=== PATIENT | female | born 1935 | race Caucasian/White ===

== ENCOUNTER 2017-05-25 12:51 | Emergency (ER) | payer MEDICARE, OTHER ==
--- NOTE | 2017-05-25 14:14 | RAD ---
3 VIEWS OF RIGHT FOOT: Date: 05/25/17 INDICATION: Right foot swelling. COMPARISON: None. FINDINGS: There is moderate metatarsus primum varus and hallux valgus deformity. There is moderate great toe MT P osteoarthrosis. There is diffuse osteopenia. There is scattered IP osteoarthrosis of the foot. Ther e is suspicion for an obliquely oriented fracture involving the lateral proximal phalangeal head of t he third digit. Recommend correlation. This is seen on only one projection. No additional fracture is grossly evident. Lisfranc alignment is preserved. There is heterotopic ossification adjacent to the medial malleolus likely reflecting sequelae of prior injury. There is a moderate size bunion. IMPRESSION: Findings suspicious for a nondisplaced obliquely oriented fracture involving the third digit proximal phalangeal head. POS: GUNJAN
== END 2017-05-25 16:19 | disposition home or self-care (01) ==
LOC: ERS 12:51
DX: S92.524A Nondisplaced fracture of middle phalanx of right lesser toe(s), initial encounter for closed fracture (principal); E78.5 Hyperlipidemia, unspecified; F03.90 Unspecified dementia, unspecified severity, without behavioral disturbance, psychotic disturbance, mood disturbance, and anxiety; F32.9 Major depressive disorder, single episode, unspecified; F41.9 Anxiety disorder, unspecified; I10 Essential (primary) hypertension; X58.XXXA Exposure to other specified factors, initial encounter

== ENCOUNTER 2017-09-01 10:26 | Emergency (ER) | payer MEDICARE, OTHER ==
--- NOTE | 2017-09-01 11:13 | RAD ---
RIGHT WRIST 3 VIEWS: HISTORY: Pain. COMPARISON: None. FINDINGS: No acute displaced fracture or malalignment. Moderate degenerative disk disease throughout the inter phalangeal joint as well as extensive degenerative disease of the thumb carpometacarpal joint. IMPRESSION: No acute fracture or malalignment. POS: [facility]
[2017-09-01] MEDS ORDERED: Bacitracin Zinc 1 Packet ONE (11:16)
== END 2017-09-01 11:33 | disposition home or self-care (01) ==
LOC: ERS 10:26
DX: S61.511A Laceration without foreign body of right wrist, initial encounter (principal); I10 Essential (primary) hypertension; E78.5 Hyperlipidemia, unspecified; F32.9 Major depressive disorder, single episode, unspecified; F41.9 Anxiety disorder, unspecified; Z79.899 Other long term (current) drug therapy; X58.XXXA Exposure to other specified factors, initial encounter

== ENCOUNTER 2018-05-22 12:53 | Emergency (ER) | payer MEDICARE, OTHER ==
[2018-05-22] MEDS ORDERED: Lidocaine 1% w/Epinephrine 1:100K 20 ML VIAL ONE (13:45)
[2018-05-22] MEDS ORDERED: Adacel (T-DAP) 0.5 ML SYRINGE ONE (15:20)
--- NOTE | 2018-05-22 15:24 | CT ---
CT BRAIN WITHOUT CONTRAST: Date: 05/22/18 HISTORY: Fall. COMPARISON: CT brain dated 03/11/15. FINDINGS: Mild atrophy. Moderate microvascular ischemic changes, chronic. No acute hemorrhage or infarct. No mi dline shift or mass effect. Paranasal sinuses and mastoids are clear. IMPRESSION: 1. Chronic changes. No acute intracranial abnormality. 2. Right forehead and supraorbital soft tissue contusion, laceration, and possible degloving injury. Underlying calvarium is intact. POS: GUNJAN
--- NOTE | 2018-05-22 15:28 | CT ---
FACIAL BONES CT WITHOUT CONTRAST: Date: 05/22/18 HISTORY: Laceration to the right forehead. Fall. COMPARISON: None. FINDINGS: There is a right supraorbital scalp laceration and hematoma. Visualized calvarium is intact. Symmetri c aeration of the sinuses and mastoid air cells. Bilateral zygomatic arches are intact. Bilateral pterygoid plates are intact. Bilaterally, ostiomeatal complexes are patent. The osseous margins of the orbits and sinuses are main tained. Mild mucosal disease of the right maxillary sinus. Remaining sinuses and mastoid air cells are approp riately aerated. Visualized upper cervical spine is intact. No definite cervical spine fracture. Maxilla and mandible do not demonstrate a post-traumatic change. No masses in the oral cavity. Midline fatty raphe of the tongue is preserved. There is mild induration of the soft tissues overlying the right maxillary and zygomatic arch. IMPRESSION: 1. Right scalp and facial post-traumatic changes. 2. No evidence of fracture. POS: [facility]
--- NOTE | 2018-05-22 15:29 | CT ---
CT CERVICAL SPINE WITHOUT CONTRAST: HISTORY: Fall. COMPARISON: None. FINDINGS: There is some ossification of the transverse ligament of the dens. No fracture of the occipital cond yles. The odontoid process is intact. Moderate facet arthropathy throughout the cervical spine. The lung apices are clear. No adenopathy. There is a calcified mass in the right lobe of the thyroid. Multilevel degenerative disk space height loss, worse from C4 to C7. IMPRESSION: 1. No acute displaced fracture or malalignment. 2. Mass in the right lobe of the thyroid with internal calcifications. Non-emergent follow-up ultra sound is recommended. POS: GUNJAN
[2018-05-22] MEDS ORDERED: Bacitracin Zinc 1 Packet ONE (16:07)
== END 2018-05-22 16:34 | disposition home or self-care (01) ==
LOC: ERS 12:53
DX: S01.81XA Laceration without foreign body of other part of head, initial encounter (principal); S61.412A Laceration without foreign body of left hand, initial encounter; E78.5 Hyperlipidemia, unspecified; F03.90 Unspecified dementia, unspecified severity, without behavioral disturbance, psychotic disturbance, mood disturbance, and anxiety; F32.9 Major depressive disorder, single episode, unspecified; E04.1 Nontoxic single thyroid nodule; I10 Essential (primary) hypertension; W01.198A Fall on same level from slipping, tripping and stumbling with subsequent striking against other object, initial encounter
CPT/HCPCS: 12015; 70450; 70486; 72125; 90471; 90715; 93005; J2001

== ENCOUNTER 2018-06-04 19:19 | Emergency (ER) | payer MEDICARE, OTHER | END 2018-06-04 21:11 | disposition home or self-care (01) | LOC: ERS 19:19 | DX: S01.81XD Laceration without foreign body of other part of head, subsequent encounter (principal); F41.9 Anxiety disorder, unspecified; F32.9 Major depressive disorder, single episode, unspecified; E78.5 Hyperlipidemia, unspecified; I10 Essential (primary) hypertension ==

== ENCOUNTER 2018-11-07 19:59 | Emergency (ER) | payer MEDICARE, OTHER ==
--- NOTE | 2018-11-07 21:10 | CT ---
Head CT without contrast 11/07/2018: COMPARISON: 05/22/2018 HISTORY: Altered mental status, confusion, dementia TECHNIQUE: Axial CT imaging at 5 mm intervals from vertex through skull base without contrast FINDINGS: The imaged paranasal sinuses and mastoid air cells are well aerated. No displaced calvarial fracture. Stable cerebral volume loss (most significant in the anterior frontal lobes) with prominence of the CSF containing spaces. Stable periventricular hypodensity suggesting small vessel d isease. No intracranial hemorrhage, midline shift, or mass effect. IMPRESSION: Stable head CT as detailed above.
[2018-11-07 21:14] LABS: Bilirubin Negative (Negative); Blood, Urine Large (Negative); Clarity Cloudy (Clear); Glucose, Urine (Dipstick) Negative (Negative); Leukocyte Large (Negative); Nitrite Negative (Negative); Protein, Urine (Dipstick) Trace mg/dL (Neg-Trace); Urobilinogen 0.2 mg/dL (0.2-1.0); pH, Urine 5.5 (5.0-9.0)
[2018-11-07 21:16] LABS: Bacteria/HPF 2+ HPF (None Seen); Squamous Epithelial 0-3 HPF (0-3); Yeast-All Forms 1+ HPF (None Seen)
[2018-11-07 21:17] LABS: Other Casts/LPF 0-3 COARSE GRAN LPF (0-3 Hyaline); Renal Epithelial 0-3 HPF (0-3)
[2018-11-07] MEDS ORDERED: cefTRIAXone\\ROCEPHIN 1 GM VIAL ONE (21:38)
[2018-11-07] MEDS ORDERED: Sodium Chloride 0.9% 100 ML ONE (21:39)
[2018-11-07 22:16] LABS: #Basophils 0.1 thou/uL (0.0-0.2); #Eosinphils 0.2 thou/uL (0.0-0.7); #Monocytes 0.6 thou/uL (0.11-0.59); #Neutrophils 3.3 thou/uL (1.40-6.50); %Eosinophils 4.7 % (0.0-10.0); %Lymphocytes 19.4 % (21.0-51.0); %Monocytes 10.6 % (0.0-10.0); %Neutrophils 63.4 % (42.0-75.0); Hemoglobin 13.3 g/dL (12.0-16.0); Mean Corpuscular HGB CONC 34.1 g/dL (32.0-36.0); Mean Corpuscular Hemoglobin 31.4 pg (27.0-31.0); Mean Corpuscular Volume 92.2 fL (78.0-98.0); Platelet Count 169 thou/uL (130-400); Red Blood Cell (RBC) Count 4.24 mill/uL (4.20-5.40); White Blood Cell (WBC) Count 5.2 thou/uL (4.8-10.8)
[2018-11-07 22:31] LABS: ALT (SGPT) 13 U/L (8-55); AST (SGOT) 17 U/L (5-34); Albumin 3.3 g/dL (3.4-4.8); Alkaline Phosphatase 93 U/L (40-150); Anion Gap 9 mmol/L (10-20); BUN (Urea Nitrogen) 19 mg/dL (9.8-20.1); Bilirubin, Total 0.3 mg/dL (0.2-1.2); Calc. Creatinine Clearance 0 mL/min (70-130); Calcium 10.1 mg/dL (7.8-10.44); Carbon Dioxide 28 mmol/L (23-31); Chloride 106 mmol/L (98-107); Estimated GFR-MDRD 63; Globulin 3.7 g/dL (2.4-3.5); Glucose 94 mg/dL (83-110); Lipase 32 U/L (8-78); Magnesium 2.1 mg/dL (1.6-2.6); Potassium 4.6 mmol/L (3.5-5.1); Sodium 138 mmol/L (136-145)
== END 2018-11-07 23:45 | disposition home or self-care (01) ==
LOC: SCSER 19:59
DX: N39.0 Urinary tract infection, site not specified (principal); K59.00 Constipation, unspecified; E78.5 Hyperlipidemia, unspecified; I10 Essential (primary) hypertension; F03.90 Unspecified dementia, unspecified severity, without behavioral disturbance, psychotic disturbance, mood disturbance, and anxiety; F41.9 Anxiety disorder, unspecified; F32.9 Major depressive disorder, single episode, unspecified
CPT/HCPCS: 51701; 70450; 80053; 81003; 81015; 83605; 83690; 83735; 84484; 85025; 87086; 93005; 96365; J0696; J3490

== ENCOUNTER 2019-01-25 04:49 | Inpatient (IN) | payer MEDICARE, OTHER ==
[2019-01-25 06:26] LABS: #Lymphocytes 0.8 thou/uL (1.20-3.40); #Monocytes 0.7 thou/uL (0.11-0.59); #Neutrophils 12.3 thou/uL (1.40-6.50); %Basophils 0.1 % (0.0-1.0); %Eosinophils 0.1 % (0.0-10.0); %Lymphocytes 5.6 % (21.0-51.0); %Monocytes 4.9 % (0.0-10.0); %Neutrophils 89.3 % (42.0-75.0); Hemoglobin 13.6 g/dL (12.0-16.0); Mean Corpuscular HGB CONC 31.4 g/dL (32.0-36.0); Mean Corpuscular Hemoglobin 29.7 pg (27.0-31.0); Mean Corpuscular Volume 94.8 fL (78.0-98.0); Mean Platelet Volume 6.9 fL (7.4-10.4); Platelet Count 328 thou/uL (130-400); RBC Distribution Width 12.9 % (11.5-14.5); Red Blood Cell (RBC) Count 4.57 mill/uL (4.20-5.40); White Blood Cell (WBC) Count 13.7 thou/uL (4.8-10.8)
[2019-01-25 06:48] LABS: ALT (SGPT) 12 U/L (8-55); AST (SGOT) 13 U/L (5-34); Albumin 3.3 g/dL (3.4-4.8); Alkaline Phosphatase 112 U/L (40-150); Anion Gap 10 mmol/L (10-20); BUN (Urea Nitrogen) 41 mg/dL (9.8-20.1); Bilirubin, Total 0.5 mg/dL (0.2-1.2); Calc. Creatinine Clearance 0 mL/min (70-130); Calcium 9.9 mg/dL (7.8-10.44); Carbon Dioxide 28 mmol/L (23-31); Chloride 111 mmol/L (98-107); Estimated GFR-MDRD 40; Glucose 158 mg/dL (83-110); Lipase 14 U/L (8-78); Potassium 4.1 mmol/L (3.5-5.1); Protein, Total 7.3 g/dL (6.0-8.3); Sodium 145 mmol/L (136-145)
[2019-01-25 07:45] LABS: Bacteria/HPF 3+ HPF (None Seen); Bilirubin Negative (Negative); Blood, Urine 2+ (Negative); Clarity Turbid (Clear); Glucose, Urine (Dipstick) Normal (Negative); Leukocyte 500 Leu/uL (Negative); Nitrite 1+ (Negative); Protein, Urine (Dipstick) 30 mg/dL (Neg-Trace); RBC/HPF 21-50 HPF (0-3); Squamous Epithelial 0-3 HPF (0-3); Urobilinogen Normal mg/dL (Less than 2); WBC/HPF Greater than 50 HPF (0-3)
[2019-01-25] MEDS ORDERED: cefTRIAXone\\ROCEPHIN 1 GM VIAL ONE (08:35)
[2019-01-25] MEDS ORDERED: Ondansetron PF 4 MG/2 ML Vial ONE (08:52)
--- NOTE | 2019-01-25 10:50 | HP ---
PRIMARY CARE PHYSICIAN: Dr. Hi Mejía. REASON FOR ADMISSION: Acute encephalopathy, urinary tract infection, and dehydration. HISTORY OF PRESENT ILLNESS: An 83-year-old female, who lives at [facility], who has underlying history of Alzheimer's dementia. The patient was sent from there because she was appeared altered. She was not eating or drinking, and she was having diarrhea and vomiting. She was appeared more lethargic, more weak. The patient is chronically confused, but she was appeared more than confused than her baseline. [facility] the patient is able to ambulate with walker with fall risk, but she is unsteady. She is able to eat with assistance, but for last 2 or 3 days, the patient was not able to do that as well and that is why the patient was sent to ER. In the emergency room, the patient was appeared dehydrated. She was only alert and oriented x1. She was not able to provide any history. I spoke with the patient's medical power of employment attorney on phone and history obtained from her. At this point, we are admitting this patient for encephalopathy, which is acute on chronic as well as urinary tract infection and dehydration, and the patient is not able to tolerate anything p.o. by mouth in the emergency room as well. REVIEW OF SYSTEMS: All review of system tried to review with the patient, but unable to review at this point because of altered mental status. PAST MEDICAL HISTORY: Hypothyroidism, hypertension, cholelithiasis, Alzheimer's dementia, and history of shingles in the right leg. PAST SURGICAL HISTORY: Laparoscopic cholecystectomy, umbilical hernia repair with mesh, knee surgery, and ORIF over the right femur. PAST PSYCHIATRIC HISTORY: Anxiety, depression, and Alzheimer's dementia. SOCIAL HISTORY: [facility]. No history of tobacco abuse. Occasionally wine. FAMILY HISTORY: No strong family history of premature coronary artery disease, stroke, or cancer as per report. The patient is not able to provide any detailed history. ALLERGIES: PENICILLIN. CURRENT HOME MEDICATIONS: 1. Namenda ER 14 mg daily. 2. Melatonin 3 mg at bedtime p.r.n. 3. Aricept 5 mg at bedtime. 4. Levothyroxine 50 mcg daily. 5. Lisinopril 10 mg daily. 6. Multivitamin daily. 7. Tramadol 50 mg b.i.d. p.r.n. 8. Aspirin 81 mg daily. 9. Tums with vitamin D one tablet daily. 10. Ferrous sulfate one tablet daily. 11. Protonix 40 mg daily. 12. MiraLAX 17 g daily. EMERGENCY ROOM COURSE: The patient has received IV fluid, Rocephin, and Zofran. PHYSICAL EXAMINATION: VITAL SIGNS: Currently, blood pressure 123/60, pulse 73, respiratory rate 16, temperature 98.8, and saturation 95% on room air. Weight 66.7 kg. GENERAL: The patient is currently confused, only oriented x1. No obvious acute distress. HEENT: Head; normocephalic and atraumatic. Eyes; pupils round and reactive to light. Extraocular muscle intact. ENT; dry mucous membranes. No oral lesion. No pharyngeal erythema. No exudate. NECK: Supple. No JVD. No thyromegaly. No carotid bruit. LUNGS: Clear to auscultation without any rhonchi or rales. CARDIAC: S1 and S2 appear regular without any murmur. ABDOMEN: Soft and bowel sounds present. Mild discomfort noted or suprapubic palpation. BACK: No CVA tenderness. EXTREMITIES: Upper extremities; passive movement of all joints are normal. Lower extremities; no edema. Good distal pulsation. SKIN: No skin rash. NEUROLOGIC: Grossly nonfocal examination. She is moving all 4 limbs, but detailed neurological examination not possible because of altered mental status. PSYCHIATRIC: Normal affect. HEMATOLOGIC: No lymphadenopathy. SIGNIFICANT LABORATORY DATA: CBC; WBC 13.7, hemoglobin 13.6, platelet 328 with left shift. BMP; sodium 145, potassium 4.1, chloride 111, carbon dioxide 28, anion gap 10, BUN 41, creatinine 1.27, glucose 158, calcium 9.9. Lactic acid 1.6. LFT; AST 13, ALT 12, alkaline phosphatase 112, albumin 3.3, and lipase 14. Urinalysis consistent with urinary tract infection. Stool for guaiac positive. ASSESSMENT AND PLAN: Impression: 1. Acute on chronic encephalopathy. 2. Dehydration. 3. Nausea and vomiting and poor p.o. tolerance. 4. Urinary tract infection. 5. Acute kidney injury with dehydration secondary to poor p.o. intake. 6. Advanced Alzheimer's dementia. 7. Hypothyroidism. 8. Gastroesophageal reflux disease. 9. Physical deconditioning. PLAN: Admission to medical floor. Code status discussed with the patient's medical power of employment attorney and the patient is DNR. Start Rocephin 1 g q.24 hours and Levaquin 500 mg IV daily. Continue IV fluid. Repeat labs tomorrow. Follow up on culture result. Monitor mental status. Start diet as tolerated. Start PT/OT. We are expecting the patient's stay in hospital more than 2 midnights. Code status discussed with the patient's medical power of employment attorney and the patient is DNR. GI prophylaxis, Pepcid 20 mg p.o. or IV b.i.d. Job ID: [id number]
[2019-01-25] MEDS ORDERED: Ondansetron ODT 4 MG TAB SL PRN (12:46)
[2019-01-25] MEDS ORDERED: Ondansetron PF 4 MG/2 ML Vial IVP PRN ×2 (12:46→12:59)
[2019-01-25] MEDS ORDERED: Acetaminophen 325 MG TAB PO PRN (12:59)
[2019-01-25] MEDS ORDERED: Calcium Carbonate 500 MG ChewTAB PO PRN (12:59)
[2019-01-25] MEDS ORDERED: hydrALAZINE 20 MG/ML VIAL SLOW IVP PRN (12:59)
[2019-01-25] MEDS ORDERED: Senokot S 8.6-50 MG TAB PO PRN (12:59)
[2019-01-25] MEDS ORDERED: Cepastat Lozenges 1 LOZ PO PRN (12:59)
[2019-01-25] MEDS ORDERED: Acetaminophen 650 MG Suppository PR PRN (12:59)
[2019-01-25] MEDS ORDERED: Bisacodyl 10 MG SUPP PR PRN ×2 (12:59)
[2019-01-25] MEDS ORDERED: Loratadine 10 MG TAB PO PRN (12:59)
[2019-01-25] MEDS ORDERED: Ondansetron ODT 4 MG TAB PO PRN (12:59)
[2019-01-25] MEDS ORDERED: Loperamide HCl 2 MG CAP PO PRN (12:59)
[2019-01-25] MEDS ORDERED: Artificial Tears 18 DROP/0.9 ML EA EYE PRN (12:59)
[2019-01-25] MEDS ORDERED: Diabetic Tussin 200 MG/10 ML UDCUP PO PRN (12:59)
[2019-01-25] MEDS ORDERED: Sodium Chloride 0.65% Nasal 44 ML BOT EA NARE PRN (12:59)
[2019-01-25 15:08] VITALS: BMI 24.9
[2019-01-25] MEDS: Sodium Chloride 0.9% 1,000 ML IV SCH (15:21)
[2019-01-25] MEDS ORDERED: cefTRIAXone\\ROCEPHIN 1 GM in Sodium Chloride 0.9% 100 ML IVPB SCH (21:00)
[2019-01-25] MEDS: Famotidine/PF 20 mg/2ml Vial SLOW IVP SCH (21:32)
[2019-01-25] MEDS: Famotidine 20 MG TAB PO SCH (21:34)
[2019-01-26] MEDS: Sodium Chloride 0.9% 1,000 ML IV SCH ×2 (00:38→03:55)
[2019-01-26 05:48] LABS: #Basophils 0.1 thou/uL (0.0-0.2); #Eosinphils 0.3 thou/uL (0.0-0.7); #Lymphocytes 1.1 thou/uL (1.20-3.40); #Monocytes 0.4 thou/uL (0.11-0.59); #Neutrophils 5.3 thou/uL (1.40-6.50); %Basophils 0.8 % (0.0-1.0); %Eosinophils 3.8 % (0.0-10.0); %Lymphocytes 14.9 % (21.0-51.0); %Monocytes 5.9 % (0.0-10.0); %Neutrophils 74.6 % (42.0-75.0); Hemoglobin 10.5 g/dL (12.0-16.0); Mean Corpuscular HGB CONC 32.9 g/dL (32.0-36.0); Mean Corpuscular Hemoglobin 31.3 pg (27.0-31.0); Mean Corpuscular Volume 95.2 fL (78.0-98.0); Mean Platelet Volume 6.8 fL (7.4-10.4); Platelet Count 234 thou/uL (130-400); RBC Distribution Width 12.6 % (11.5-14.5); Red Blood Cell (RBC) Count 3.35 mill/uL (4.20-5.40); White Blood Cell (WBC) Count 7.1 thou/uL (4.8-10.8)
[2019-01-26 06:11] LABS: ALT (SGPT) 9 U/L (8-55); AST (SGOT) 12 U/L (5-34); Albumin 2.7 g/dL (3.4-4.8); Alkaline Phosphatase 95 U/L (40-150); Anion Gap 8 mmol/L (10-20); BUN (Urea Nitrogen) 26 mg/dL (9.8-20.1); Bilirubin, Total 0.4 mg/dL (0.2-1.2); Calc. Creatinine Clearance 48 mL/min (70-130); Calcium 8.7 mg/dL (7.8-10.44); Carbon Dioxide 24 mmol/L (23-31); Chloride 116 mmol/L (98-107); Estimated GFR-MDRD 60; Globulin 3.2 g/dL (2.4-3.5); Glucose 101 mg/dL (83-110); Potassium 3.7 mmol/L (3.5-5.1); Protein, Total 5.9 g/dL (6.0-8.3); Sodium 144 mmol/L (136-145)
[2019-01-26] MEDS ORDERED: Prevnar 13-Val Conj/PF 0.5 ML SYRINGE IM ONE (09:00)
[2019-01-26] MEDS: cefTRIAXone\\ROCEPHIN 1 GM in Sodium Chloride 0.9% 100 ML IVPB SCH (10:33)
[2019-01-26] MEDS: Famotidine 20 MG TAB PO SCH (10:34)
[2019-01-26] MEDS: Saccharomyces boulardii 250 MG CAP PO SCH (10:34)
[2019-01-26] MEDS: Enoxaparin Sodium 40 MG/0.4 ML SYRINGE SC SCH (10:34)
[2019-01-26] MEDS: Famotidine/PF 20 mg/2ml Vial SLOW IVP SCH (10:35)
--- NOTE | 2019-01-26 13:07 | PDOC.HOSPP ---
- Subjective Subjective: Patient seen and examined. No new complaints. No overnight events - Objective Vital Signs & Weight: Vital Signs (12 hours) Temp Pulse Resp BP Pulse Ox 01/26/19 08:00 97.9 F 56 L 20 150/87 H 96 01/26/19 04:00 97.6 F 58 L 15 169/82 H 94 L Weight Weight 145 lb 5 oz I&O: 01/25/19 01/26/19 01/27/19 06:59 06:59 06:59 Intake Total 880 Balance 880 Result Diagrams: 01/26/19 05:21 01/26/19 05:21 ROS - Review of Systems ROS unobtainable: due to mental status All systems: All other ROS were reviewed and found negative. - Medication Medications: Active Medications Generic Name Dose Route Start Last Admin Trade Name Freq PRN Reason Stop Dose Admin Enoxaparin Sodium 40 mg 01/26/19 09:00 01/26/19 10:34 Lovenox SC 40 mg 0900 ILA Administration Famotidine 20 mg 01/25/19 21:00 01/26/19 10:35 Pepcid SLOW IVP Not Given Q12HR ILA Famotidine 20 mg 01/25/19 21:00 01/26/19 10:34 Pepcid PO 20 mg BID ILA Administration Ceftriaxone Sodium 1 gm/ 100 mls @ 200 mls/hr 01/26/19 09:00 01/26/19 10:33 Sodium Chloride IVPB 100 mls 0900 ILA Administration Levofloxacin 500 mg/ Device 100 mls @ 100 mls/hr 01/25/19 14:00 01/25/19 15: 21 IVPB 100 mls Q24HR ILA Administration Saccharomyces Boulardii 250 mg 01/26/19 09:00 01/26/19 10:34 Florastor PO 250 mg DAILY ILA Administration - Exam NAD, awake alert Eye: PERRL, anicteric sclera ENT: normocephalic atraumatic, no oropharyngeal lesions Neck: supple, symmetric, no JVD Heart: RRR, no murmur, no gallops, no rubs Respiratory: CTAB, no wheezes, no rales, no ronchi Gastrointestinal: soft, non-tender, non-distended, normal bowel sounds Extremities: no cyanosis, no clubbing, no edema Skin: normal turgor, no lesions, no rashes Neurological: CN's grossly intact, normal sensation to touch, no focal deficits Musculoskeletal: normal tone, normal strength Psychiatric: normal affect, normal behavior Hosp A/P (1) RAZIA (acute kidney injury) Code(s): N17.9 - ACUTE KIDNEY FAILURE, UNSPECIFIED Status: Acute (2) Dehydration Code(s): E86.0 - DEHYDRATION Status: Acute (3) Encephalopathy acute Code(s): G93.40 - ENCEPHALOPATHY, UNSPECIFIED Status: Acute (4) UTI (urinary tract infection) Status: Acute (5) Alzheimer's dementia Code(s): G30.9 - ALZHEIMER'S DISEASE, UNSPECIFIED; F02.80 - DEMENTIA IN OTH DISEASES CLASSD ELSWHR W/O BEHAVRL DISTURB Status: Chronic (6) Anemia, normocytic normochromic Code(s): D64.9 - ANEMIA, UNSPECIFIED Status: Chronic (7) Hypothyroidism Code(s): E03.9 - HYPOTHYROIDISM, UNSPECIFIED Status: Chronic - Plan old records reviewed/req, continue antibiotics, PT/OT, DVT proph w/lovenox, dc IVF DC IVF follow culture continue rocephin , levaquin medication reviewed as below symptomatic treatment
[2019-01-27] MEDS: Famotidine 20 MG TAB PO SCH (07:44)
[2019-01-27] MEDS: Enoxaparin Sodium 40 MG/0.4 ML SYRINGE SC SCH (07:44)
[2019-01-27] MEDS: Saccharomyces boulardii 250 MG CAP PO SCH (07:44)
[2019-01-27] MEDS: Famotidine/PF 20 mg/2ml Vial SLOW IVP SCH (07:45)
--- NOTE | 2019-01-27 11:49 | PDOC.HOSPP ---
- Subjective Subjective: Patient seen and examined. No new complaints. No overnight events - Objective Vital Signs & Weight: Vital Signs (12 hours) Temp Pulse Resp BP Pulse Ox 01/27/19 11:41 97.8 F 56 L 14 166/85 H 95 01/27/19 07:28 97.8 F 49 L 14 135/54 L 91 L Weight Admit Weight 145 lb 4.96 oz Weight 145 lb 4.96 oz I&O: 01/26/19 01/27/19 01/28/19 06:59 06:59 06:59 Intake Total 880 240 Balance 880 240 Result Diagrams: 01/26/19 05:21 01/26/19 05:21 ROS - Review of Systems ROS unobtainable: due to mental status All systems: All other ROS were reviewed and found negative. - Medication Medications: Active Medications Generic Name Dose Route Start Last Admin Trade Name Freq PRN Reason Stop Dose Admin Enoxaparin Sodium 40 mg 01/26/19 09:00 01/27/19 07:44 Lovenox SC 40 mg 0900 ILA Administration Famotidine 20 mg 01/27/19 09:00 01/27/19 07:45 Pepcid SLOW IVP Not Given DAILY ILA Famotidine 20 mg 01/27/19 09:00 01/27/19 07:44 Pepcid PO 20 mg DAILY ILA Administration Ceftriaxone Sodium 1 gm/ 100 mls @ 200 mls/hr 01/26/19 09:00 01/26/19 10:33 Sodium Chloride IVPB 100 mls 0900 ILA Administration Saccharomyces Boulardii 250 mg 01/26/19 09:00 01/27/19 07:44 Florastor PO 250 mg DAILY ILA Administration - Exam NAD, awake alert Eye: PERRL, anicteric sclera ENT: normocephalic atraumatic, no oropharyngeal lesions Neck: supple, symmetric, no JVD, no Thyromegaly Heart: RRR, no murmur, no gallops, no rubs Respiratory: CTAB, no wheezes, no rales Gastrointestinal: soft, non-tender, non-distended, normal bowel sounds Extremities: no cyanosis, no clubbing, no edema Skin: normal turgor, no lesions, no rashes Neurological: CN's grossly intact, normal sensation to touch, no focal deficits , no new deficit Musculoskeletal: normal tone, normal strength Hosp A/P (1) RAZIA (acute kidney injury) Code(s): N17.9 - ACUTE KIDNEY FAILURE, UNSPECIFIED Status: Acute (2) Dehydration Code(s): E86.0 - DEHYDRATION Status: Acute (3) Encephalopathy acute Code(s): G93.40 - ENCEPHALOPATHY, UNSPECIFIED Status: Acute (4) UTI (urinary tract infection) Status: Acute (5) Alzheimer's dementia Code(s): G30.9 - ALZHEIMER'S DISEASE, UNSPECIFIED; F02.80 - DEMENTIA IN OTH DISEASES CLASSD ELSWHR W/O BEHAVRL DISTURB Status: Chronic (6) Anemia, normocytic normochromic Code(s): D64.9 - ANEMIA, UNSPECIFIED Status: Chronic (7) Hypothyroidism Code(s): E03.9 - HYPOTHYROIDISM, UNSPECIFIED Status: Chronic - Plan old records reviewed/req, continue antibiotics, dc IVF dc levaquin continue rocephin based on culture result expecting discharge tomorrow medication reviewed as above symptomatic treatment
[2019-01-27] MEDS: cefTRIAXone\\ROCEPHIN 1 GM in Sodium Chloride 0.9% 100 ML IVPB SCH (11:50)
[2019-01-27] MEDS: Levothyroxine Sodium 50 MCG TAB PO SCH (11:51)
[2019-01-27] MEDS: Lisinopril 5 MG TAB PO SCH (11:51)
[2019-01-27] MEDS: Melatonin 3 MG TAB PO SCH (11:51)
[2019-01-27] MEDS ORDERED: Donepezil HCl 5 MG TAB PO SCH (21:00)
[2019-01-28] MEDS: Famotidine 20 MG TAB PO SCH (08:48)
[2019-01-28] MEDS: Lisinopril 5 MG TAB PO SCH (08:48)
[2019-01-28] MEDS: Levothyroxine Sodium 50 MCG TAB PO SCH (08:48)
[2019-01-28] MEDS: Enoxaparin Sodium 40 MG/0.4 ML SYRINGE SC SCH (08:49)
[2019-01-28] MEDS: Saccharomyces boulardii 250 MG CAP PO SCH (08:49)
[2019-01-28] MEDS: cefTRIAXone\\ROCEPHIN 1 GM in Sodium Chloride 0.9% 100 ML IVPB SCH (08:49)
[2019-01-28] MEDS: Famotidine/PF 20 mg/2ml Vial SLOW IVP SCH (08:57)
[2019-01-28] MEDS: Melatonin 3 MG TAB PO SCH (12:39)
[2019-01-28 13:13] VITALS: BP 132/74; TEMP 97.7
--- NOTE | 2019-01-28 13:40 | DIS ---
DATE OF ADMISSION: 01/25/2019 DATE OF DISCHARGE: 01/28/2019 PRIMARY CARE PHYSICIAN: Daniella Mg MD DISCHARGE DISPOSITION: [facility]. PRIMARY DISCHARGE DIAGNOSES: Acute kidney injury, dehydration, acute metabolic encephalopathy, urinary tract infection. SECONDARY DISCHARGE DIAGNOSES: Hypothyroidism, normocytic normochromic anemia, Alzheimer dementia. PRIMARY PROCEDURE/OPERATION: None. RADIOLOGICAL INVESTIGATION: None. SIGNIFICANT LABORATORY DATA: WBC 7.1, hemoglobin 10.5, platelet 234. Sodium 144, potassium 3.7, BUN 26, creatinine 0.90, calcium 8.7. LFT normal. Lipase 14. Urinalysis suggestive of UTI. Urine culture grew E coli. DISCHARGE MEDICATION: 1. Tylenol Extra Strength 500 mg q.6 hourly p.r.n. 2. Aricept 5 mg p.o. at bedtime. 3. Synthroid 50 mcg p.o. daily. 4. Lisinopril 10 mg daily. 5. Melatonin 3 mg p.o. at bedtime. 6. Namenda XR 14 mg p.o. daily. 7. Omnicef 300 mg p.o. b.i.d. for 7 days. CONTRAINDICATION: None. CODE STATUS: DNR. INPATIENT CHIEF LOCK OPERATOR: None. ALLERGIES: PENICILLIN. DISCHARGE PLAN: Posthospital, the patient will follow up with primary care physician as needed. HOSPITAL COURSE: An 83-year-old female who has Alzheimer dementia who lives at [facility] where she was found altered mental status, lethargic, and not eating well. She was found with dehydration. She had mild acute kidney injury upon arrival to emergency room. She was encephalopathic on arrival. She had urinary tract infection on admission. She was treated with Rocephin and levofloxacin while in hospital. Her urine culture grew E coli and culture result was showing resistance to fluoroquinolone and that is why that medication was discontinued and we continued with Rocephin only. Though the patient has penicillin allergy, but she was tolerating cephalosporin without any side effects, on discharge, we changed to Omnicef for another 7 days. The patient became more alert and up to her baseline level. She will go back to [facility]. While in hospital, we evaluated with physical therapy. We have given enough IV fluid and her renal function improved to normal. The patient is tolerating p.o. well and she is up to her baseline status. PHYSICAL EXAMINATION: GENERAL: I have seen and examined the patient at bedside today. VITAL SIGNS: Currently, temperature 97.7, pulse 79, respiratory rate 16, saturation 95%, blood pressure 132/74, weight 145 pounds. GENERAL: The patient is currently alert, awake, follows simple commands, in no acute distress. HEENT: Normocephalic and atraumatic. LUNGS: Clear without any rhonchi. CARDIAC: S1 and S2, regular without any murmur. ABDOMEN: Soft and benign. EXTREMITIES: No edema. NEUROLOGIC: Nonfocal examination. New medication prescription given. Job ID: [id number]
== END 2019-01-28 15:06 | disposition home or self-care (01) | DRG 682 ==
LOC: ERS 04:49 → T4-B 09:13
PROVIDERS: ADMIT Internal Medicine; ATTEND Internal Medicine
DX: N17.9 Acute kidney failure, unspecified (principal); G93.41 Metabolic encephalopathy; E86.0 Dehydration; Z66 Do not resuscitate; E03.9 Hypothyroidism, unspecified; D64.9 Anemia, unspecified; G30.9 Alzheimer's disease, unspecified; F41.9 Anxiety disorder, unspecified; F32.9 Major depressive disorder, single episode, unspecified; F02.80 Dementia in other diseases classified elsewhere, unspecified severity, without behavioral disturbance, psychotic disturbance, mood disturbance, and anxiety; E78.5 Hyperlipidemia, unspecified; N12 Tubulo-interstitial nephritis, not specified as acute or chronic; Z88.0 Allergy status to penicillin; Z90.49 Acquired absence of other specified parts of digestive tract
CPT/HCPCS: 36415; 51701; 80053; 81003; 81015; 82274; 83605; 83690; 85025; 87077; 87086; 87186; 96361; 96365; 96375; A4353; J0696; J1650; J1956; J2405; J3490; S0028

== ENCOUNTER 2020-02-14 16:27 | Emergency (ER) | payer MEDICARE, OTHER ==
[~2020-02-14 16:27] MED LIST: Iopamidol-370 76% 500 ML 1 ML ONE
[2020-02-14 17:04] LABS: #Lymphocytes 0.8 thou/uL (1.20-3.40); #Monocytes 0.2 thou/uL (0.11-0.59); #Neutrophils 5.5 thou/uL (1.40-6.50); %Basophils 0.6 % (0.0-1.0); %Eosinophils 0.7 % (0.0-10.0); %Lymphocytes 11.6 % (21.0-51.0); %Monocytes 3.4 % (0.0-10.0); %Neutrophils 83.7 % (42.0-75.0); Mean Corpuscular Volume 90.4 fL (78.0-98.0); Mean Platelet Volume 6.9 fL (7.4-10.4); Platelet Count 397 thou/uL (130-400); RBC Distribution Width 14.6 % (11.5-14.5); Red Blood Cell (RBC) Count 4.63 mill/uL (4.20-5.40); White Blood Cell (WBC) Count 6.6 thou/uL (4.8-10.8)
--- NOTE | 2020-02-14 17:23 | ULT ---
ULTRASOUND DOPPLER DUPLEX VENOUS RIGHT LOWER EXTREMITY: DATE: 02/14/2020 HISTORY: 84-year-old female with right lower extremity pain and swelling TECHNIQUE: Grayscale, color-flow, and spectral analysis, of major veins of right lower extremity. FINDINGS: There is demonstration of blood flow with normal compressibility, of the right common femoral, profun da femoral, greater saphenous, femoral, popliteal, and posterior tibial, veins. IMPRESSION: Negative. No deep venous thrombosis of right lower extremity.
[2020-02-14 17:26] LABS: ALT (SGPT) 10 U/L (8-55); AST (SGOT) 12 U/L (5-34); Albumin 3.1 g/dL (3.4-4.8); Alkaline Phosphatase 140 U/L (40-110); Anion Gap 12 mmol/L (10-20); BUN (Urea Nitrogen) 16 mg/dL (9.8-20.1); Bilirubin, Total Less than 0.2 mg/dL (0.2-1.2); Calc. Creatinine Clearance 0 mL/min (70-130); Calcium 9.4 mg/dL (7.8-10.44); Carbon Dioxide 24 mmol/L (23-31); Chloride 107 mmol/L (98-107); Estimated GFR-MDRD 52; Globulin 4.8 g/dL (2.4-3.5); Glucose 137 mg/dL (83-110); Potassium 4.3 mmol/L (3.5-5.1); Protein, Total 7.9 g/dL (6.0-8.3); Sodium 139 mmol/L (136-145)
--- NOTE | 2020-02-14 19:18 | CT ---
CTA ABDOMEN WITH CONTRAST CTA PELVIS WITH CONTRAST CTA BILATERAL LOWER EXTREMITIES WITH CONTRAST: 02/14/20 (Computed Tomographic Angiography, abdominal aorta and bilateral iliofemoral lower extremity runoff, with contrast material, and imaging postprocessing) HISTORY: 84-year-old female with right lower extremity swelling. Rule out arterial occlusion. TECHNIQUE: IV injection of iodinated contrast: 70 mL Isovue 370. Arterial phase bolus chasing technique. Scan acquisition from top of abdominal aorta to bilateral ankles. 3D MIP reconstructions. FINDINGS: There is herniation of at least half of the stomach into the chest. No pleural effusion or consolidat ion at lung bases. 13 x 12 x 18 mm calculus in a right renal lower pole major calyx partially at the right UPJ. Posterio r to that, in a more peripheral lower pole calyx, there is a 9 x 5 x 9 mm calculus. There is mild to moderate dilation of all of the right renal calyces. Inferior to that, the proximal right ureter is m ildly dilated and has diffuse mural thickening with fat stranding around the UPJ. The mild dilation o f the ureter continues to the mid ureter, then the distal ureter is collapsed such that it is difficu lt to visualize. The cause of obstruction is not apparent. No left hydronephrosis. No major pathology of liver, pancreas, adrenals, or spleen. No small bowel dilation. Normal appendix. Normal wall thickness of the urinary bladder. No bladder calculus. Large number of diverticulosis of the redundant descending colon and sigmoid colon. No ascites or pneumoperitoneum. Atherosclerotic calcification, mild to moderate, of entire abdominal aorta without aneurysm, dissecti on, or high grade stenosis. Celiac: Mild stenosis at origin. Superior mesenteric artery: No high grade stenosis. Bilateral common iliac: No high grade stenosis. Bilateral external iliac: No high grade stenosis. Bilateral common femoral: No high grade stenosis. Bilateral profunda femoral: No high grade stenosis at origins. Bilateral superficial femoral arteries: No high grade stenosis. There is a long metallic plate with screws from right proximal femoral shaft to level of femoral cond yles causing streak artifact. There is additional total right knee replacement arthroplasty hardware causing very severe streak artifact, completely obscuring distal portion of right superficial femoral artery and right popliteal artery. No high grade stenosis is identified in the visualized portions o f the right SFA or the entire left SFA. Unfortunately, the scan has outrun the contrast bolus at the bilateral knees, such that there is no contrast material in any of the branches of the bilateral popl iteal arteries bilaterally. There is edema in the superficial soft tissues circumferentially around the bilateral legs distal to the knees, right worse than left and right foot. No destructive osseous lesion identified. IMPRESSION: 1. Unfortunately, the scan outran the IV contrast bolus in the bilateral legs such that the deni henry distal to the popliteal arteries, are not opacified, and cannot be evaluated. 2. Mild atherosclerosis of abdominal aorta and its branches, with no evidence of high grade sten osis from the upper abdominal aorta through the mid right superficial femoral artery and distal left superficial femoral artery. 3. Status post total right knee replacement arthroplasty hardware also causes additional severe streak artifact obscuring right distal SFA and right popliteal artery. 4. Status post open reduction internal fixation of right proximal to distal femur. 5. Moderate to large hiatal hernia. 6. Right hydronephrosis consistent with right obstructive uropathy. 7. Right hydroureter down to the level of the mid ureter. Cause of ureteral obstruction is not a pparent on this CT. There is no calculus in the mid or distal ureter. 8. At least two calculi in the right kidney, the larger one measuring 18 mm. 9. If there is clinical concern for arterial occlusive disease, consider arterial Doppler ultras ound of the right lower extremity. 10. Edema in the bilateral legs, right worse than left. Edema in right foot. gabby[] POS: [facility]
--- NOTE | 2020-02-14 21:44 | ULT ---
RIGHT LOWER EXTREMITY ARTERIAL DOPPLER ULTRASOUND: 02/14/20 HISTORY: Right lower extremity pain. FINDINGS: The peak systolic velocity in the arteries of the right lower extremity are as follows: ALUMNI RELATIONS COORDINATOR 93 cm/s. Profunda 63 cm/s. Proximal SFA 92 cm/s. Mid SFA 83 cm/s. Distal SFA 56 cm/s. Popliteal 55 cm/s. Anterior tibial 90 cm/s. Posterior tibial 84 cm/s. Dorsalis pedis 72 cm/s. There is triphasic flow in the ALUMNI RELATIONS COORDINATOR, SFA, and BFA. There is biphasic flow in the profunda and monophas ic flow in the popliteal, anterior and posterior tibial arteries. IMPRESSION: No evidence of arterial occlusion in the right lower extremity. POS: OFF
== END 2020-02-14 22:10 | disposition home or self-care (01) ==
LOC: ERS 16:27
DX: L03.115 Cellulitis of right lower limb (principal); E78.5 Hyperlipidemia, unspecified; I10 Essential (primary) hypertension; F03.90 Unspecified dementia, unspecified severity, without behavioral disturbance, psychotic disturbance, mood disturbance, and anxiety; F41.9 Anxiety disorder, unspecified; F32.9 Major depressive disorder, single episode, unspecified; Z79.899 Other long term (current) drug therapy
CPT/HCPCS: 36415; 75635; 80053; 85025; 93923; Q9967

== ENCOUNTER 2020-06-16 21:28 | Inpatient (IN) | payer MEDICARE, OTHER ==
--- NOTE | 2020-06-16 22:17 | RAD ---
EXAM: Single view of the chest HISTORY: Covid signs and symptoms with chest pain and shortness of breath COMPARISON: 12/06/2016 FINDINGS: Single view of the chest shows an enlarged cardiomediastinal silhouette. Multifocal opaciti es are seen in the lungs. These are more prominent in the right upper lobe and left lower lobe. No pleural effusion is seen. Degenerative changes are seen in the spine. IMPRESSION: Multifocal infiltrates.
[2020-06-16 22:18] LABS: #Lymphocytes 0.5 thou/uL (1.20-3.40); #Monocytes 0.1 thou/uL (0.11-0.59); #Neutrophils 8.7 thou/uL (1.40-6.50); %Basophils 0.1 % (0.0-1.0); %Eosinophils 0.2 % (0.0-10.0); %Lymphocytes 4.9 % (21.0-51.0); %Neutrophils 93.8 % (42.0-75.0); Hemoglobin 12.2 g/dL (12.0-16.0); Mean Corpuscular HGB CONC 32.2 g/dL (32.0-36.0); Mean Corpuscular Hemoglobin 29.1 pg (27.0-31.0); Mean Corpuscular Volume 90.4 fL (78.0-98.0); Mean Platelet Volume 7.8 fL (7.4-10.4); Platelet Count 257 thou/uL (130-400); RBC Distribution Width 15.8 % (11.5-14.5); White Blood Cell (WBC) Count 9.2 thou/uL (4.8-10.8)
[2020-06-16] MEDS ORDERED: cefTRIAXone\\ROCEPHIN 2 GM VIAL ONE (22:37)
[2020-06-16] MEDS ORDERED: PROVENTIL INHALER 6.7 G (200 INHALATIONS) ONE ×2 (22:37→22:39)
[2020-06-16 22:39] LABS: ALT (SGPT) 15 U/L (8-55); AST (SGOT) 31 U/L (5-34); Albumin 2.7 g/dL (3.4-4.8); Alkaline Phosphatase 128 U/L (40-110); Anion Gap 16 mmol/L (10-20); BUN (Urea Nitrogen) 27 mg/dL (9.8-20.1); Bilirubin, Total 0.2 mg/dL (0.2-1.2); Calc. Creatinine Clearance 0 mL/min (70-130); Calcium 9.1 mg/dL (7.8-10.44); Carbon Dioxide 23 mmol/L (23-31); Chloride 116 mmol/L (98-107); Globulin 4.6 g/dL (2.4-3.5); Glucose 136 mg/dL (83-110); Potassium 3.7 mmol/L (3.5-5.1); Protein, Total 7.3 g/dL (6.0-8.3); Sodium 151 mmol/L (136-145)
[2020-06-16] MEDS ORDERED: Azithromycin 500 MG VIAL ONE (22:41)
[2020-06-16 23:00] LABS: CKMB 4.7 ng/mL (0-6.6)
[2020-06-16 23:40] LABS: SARS-CoV-2 NAA Rapid Test DETECTED (NotDetected)
--- NOTE | 2020-06-17 02:38 | PDOC.HHP ---
Hospitalist HPI - History of Present Illness Shortness of breath, hypoxia History of Present Illness: This is an 84-year-old female patient with a history of hypothyroidism, hypertension dementia lives in [facility] Alzheimer[facility] unit was brought in on account of worsening shortness of breath and hypoxia. EMS noted a blood pressure of 170/90, pulse 65 saturation on room air at 90. At baseline patient is oriented only to self. At presentation blood pressure was 154/83, pulse 58, respiratory 22 and she was saturating on room air at 90% this however deteriorated eventually requiring high flow oxygen. Labs showed a BNP of 210, troponin of 0.029, sodium 151, creatinine 1.40 from a baseline of 1.02 on 02/14/2020. D-dimer was elevated at 2.[address] was not done on account of poor renal clearance. CBC was essentially within normal limits. Her Covid test turned out positive. X-ray showed bilateral infiltrates consistent with Covid. She was started on azithromycin and ceftriaxone and Proventil. Hospitalist team consulted for admission . Hospitalist ROS - Review of Systems ROS unobtainable: due to mental status Hospitalist History - Past Medical History Other Medical History: Dementia, hypertension, hypothyroidism - Past Surgical History Other Surgical History: Cholecystectomy, right knee surgery - Family History Family History: reports: no pertinent history - Social History Smoking Status: Never smoker - Exam General - other findings: Patient awake however oriented to only self. In no acute distress Heart: RRR, no murmur, no gallops, no rubs Respiratory - other findings: Reduced air entry bilaterally, occasional wheezing. On high flow oxygen Gastrointestinal: soft, non-tender, non-distended, normal bowel sounds Extremities: no cyanosis, no clubbing, no edema Neurological - other findings: Patient not compliant of instructions. Unable to assess thoroughly Psychiatric: oriented to person Hospitalist Results - Labs Result Diagrams: 06/16/20 22:07 06/16/20 22:07 Lab results: WBC 9.2 thou/uL (4.8-10.8) 06/16/20 22:07 Hgb 12.2 g/dL (12.0-16.0) 06/16/20 22:07 Hct 37.9 % (36.0-47.0) 06/16/20 22:07 MCV 90.4 fL (78.0-98.0) 06/16/20 22:07 Plt Count 257 thou/uL (130-400) 06/16/20 22:07 Neutrophils % 93.8 % (42.0-75.0) H 06/16/20 22:07 Sodium 151 mmol/L (136-145) H 06/16/20 22:07 Potassium 3.7 mmol/L (3.5-5.1) 06/16/20 22:07 Chloride 116 mmol/L (98-107) H 06/16/20 22:07 Carbon Dioxide 23 mmol/L (23-31) 06/16/20 22:07 BUN 27 mg/dL (9.8-20.1) H 06/16/20 22:07 Creatinine 1.40 mg/dL (0.6-1.1) H 06/16/20 22:07 Glucose 136 mg/dL (83-110) H 06/16/20 22:07 Calcium 9.1 mg/dL (7.8-10.44) 06/16/20 22:07 Total Bilirubin 0.2 mg/dL (0.2-1.2) 06/16/20 22:07 AST 31 U/L (5-34) 06/16/20 22:07 ALT 15 U/L (8-55) 06/16/20 22:07 Alkaline Phosphatase 128 U/L (40-110) H 06/16/20 22:07 CK-MB (CK-2) 4.7 ng/mL (0-6.6) 06/16/20 22:07 Troponin I 0.029 ng/mL (< 0.028) H 06/16/20 22:07 B-Natriuretic Peptide 210.0 pg/mL (0-100) H 06/16/20 22:07 Serum Total Protein 7.3 g/dL (6.0-8.3) 06/16/20 22:07 Albumin 2.7 g/dL (3.4-4.8) L 06/16/20 22:07 Hospitalist H&P A/P - Plan Plan: This is an 84-year-old female patient with a history of hypothyroidism and jorge ntia resident at nursing facility presenting with ongoing worsening shortness of breath and hypoxemia. She test positive for Covid with pneumonia. Acute hypoxic respiratory failure In the setting of Covid pneumonia Continue on high flow oxygen Pneumonia due to Covid Start zinc and vitamins Start steroids Consider remdesivir and plasma in a.m. Monitor CRP, ferritin Hypertension Resume home medications when stable. Hypernatremia Sodium 151 Likely due to dehydration We will give a bolus of normal saline and continues. And repeat BMP at noon Consider D5 if worsens. RAZIA on CKD Likely prerenal Creatinine elevated at 1.40 Give IV fluids and monitor. CODE STATUSfull code DVT prophylaxisLovenox
[2020-06-17] MEDS ORDERED: Sodium Chloride 0.9% 500 ML IV SCH (02:45)
[2020-06-17] MEDS ORDERED: Sodium Chloride 0.9% 1,000 ML IV SCH (03:00)
[2020-06-17 05:10] LABS: #Lymphocytes 0.4 thou/uL (1.20-3.40); #Monocytes 0.1 thou/uL (0.11-0.59); #Neutrophils 6.6 thou/uL (1.40-6.50); %Eosinophils 0.2 % (0.0-10.0); %Lymphocytes 5.2 % (21.0-51.0); %Monocytes 1.8 % (0.0-10.0); %Neutrophils 92.9 % (42.0-75.0); Hemoglobin 10.1 g/dL (12.0-16.0); Mean Corpuscular HGB CONC 30.2 g/dL (32.0-36.0); Mean Corpuscular Hemoglobin 26.7 pg (27.0-31.0); Mean Corpuscular Volume 88.5 fL (78.0-98.0); Mean Platelet Volume 7.8 fL (7.4-10.4); Platelet Count 251 thou/uL (130-400); RBC Distribution Width 15.5 % (11.5-14.5); Red Blood Cell (RBC) Count 3.79 mill/uL (4.20-5.40); White Blood Cell (WBC) Count 7.1 thou/uL (4.8-10.8)
[2020-06-17 05:32] LABS: Anion Gap 13 mmol/L (10-20); BUN (Urea Nitrogen) 27 mg/dL (9.8-20.1); Calc. Creatinine Clearance 0 mL/min (70-130); Calcium 8.4 mg/dL (7.8-10.44); Carbon Dioxide 21 mmol/L (23-31); Chloride 120 mmol/L (98-107); Glucose 89 mg/dL (83-110); Potassium 3.9 mmol/L (3.5-5.1); Sodium 150 mmol/L (136-145)
[2020-06-17 05:39] LABS: Troponin I 0.025 ng/mL (< 0.028)
[2020-06-17 07:20] VITALS: BMI 29.9
[2020-06-17] MEDS ORDERED: Albuterol 200 PUFF (6.7GM INHALER) INH PRN (08:33)
[2020-06-17] MEDS ORDERED: Enoxaparin Sodium 40 MG/0.4 ML SYRINGE ONE (09:11)
[2020-06-17] MEDS ORDERED: Dexamethasone 4 mg/ml Vial ONE (09:49)
[2020-06-17] MEDS: Ascorbic Acid 500 mg Chewable Tablet PO SCH (09:51)
[2020-06-17] MEDS: Cholecalciferol (Vitamin D3) 400 UNITS TAB PO SCH (09:51)
[2020-06-17] MEDS: Dexamethasone 4 mg/ml Vial SLOW IVP SCH (09:51)
[2020-06-17] MEDS: Enoxaparin Sodium 40 MG/0.4 ML SYRINGE SC SCH ×2 (09:51→20:48)
[2020-06-17] MEDS: Dextrose 5% in Water 1,000 ML IV SCH ×2 (09:52→20:49)
[2020-06-17] MEDS: Zinc Sulfate 220 MG CAP PO SCH (09:52)
[2020-06-17 13:08] LABS: Anion Gap 17 mmol/L (10-20); BUN (Urea Nitrogen) 23 mg/dL (9.8-20.1); Calc. Creatinine Clearance 33 mL/min (70-130); Calcium 8.2 mg/dL (7.8-10.44); Carbon Dioxide 17 mmol/L (23-31); Chloride 121 mmol/L (98-107); Glucose 125 mg/dL (83-110); Potassium 4.1 mmol/L (3.5-5.1); Sodium 151 mmol/L (136-145)
[2020-06-17] MEDS: Albuterol 200 PUFF (6.7GM INHALER) INH SCH ×4 (13:29→23:34)
[2020-06-17] MEDS ORDERED: Albuterol 200 PUFF (6.7GM INHALER) ONE (14:41)
--- NOTE | 2020-06-17 16:16 | PDOC.BPN ---
- Brief Progress Note Encounter Date: 06/17/20 Encounter Time: 14:00 F/u : COVID The patient is on high flow oxygen. She has severe Alzheimer and non-verbal. Sats 92% approximately . Unclear if she was eating prior to this GEn: patient moaning, not very verbal Neuro: does not follow commands CVS: RRR, no murmurs, rubs, gallops Lungs: diminished breath sounds bilaterally Abdomen: +BS, soft, nontender, nondistended Ext: no edema This is an 84 year old female with past medical history of Alzheimer who presented with worsening SOB and hypoxia Acute hypoxic respiratory faiulre from COVID pneumonia - continue high flow oxygen, steroids. Cannot give remdesivir due to creatinine of 1.6 RAZIA - creatinine worsened to 1.6. Continue D5W, recheck in am Hypernatremia - sodium 150. Will order D5W and recheck Hypothyroidism - continue levothyroxine
[2020-06-18] MEDS: Albuterol 200 PUFF (6.7GM INHALER) INH SCH ×6 (02:12→22:59)
[2020-06-18 03:05] LABS: Bilirubin Negative (Negative); Blood, Urine 3+ (Negative); Clarity Turbid (Clear); Glucose, Urine (Dipstick) Normal (Negative); Ketone, Urine Negative (Negative); Leukocyte 250 Leu/uL (Negative); Nitrite Negative (Negative); Protein, Urine (Dipstick) 70 mg/dL (Neg-Trace); RBC/HPF Greater than 50 HPF (0-3); Specific Gravity, Urine 1.024 (1.002-1.036); Squamous Epithelial 0-3 HPF (0-3); Urobilinogen Normal mg/dL (Less than 2); WBC/HPF 21-50 HPF (0-3); pH, Urine 5.5 (5.0-9.0)
[2020-06-18 03:15] LABS: Bacteria/HPF 1+ HPF (None Seen)
[2020-06-18 03:16] LABS: Urine Culture Reflex Yes Yes
[2020-06-18 04:05] LABS: Anion Gap 14 mmol/L (10-20); BUN (Urea Nitrogen) 30 mg/dL (9.8-20.1); Calc. Creatinine Clearance 29 mL/min (70-130); Calcium 7.9 mg/dL (7.8-10.44); Carbon Dioxide 21 mmol/L (23-31); Chloride 118 mmol/L (98-107); Glucose 229 mg/dL (83-110); Potassium 3.8 mmol/L (3.5-5.1); Sodium 149 mmol/L (136-145)
[2020-06-18] MEDS: Ascorbic Acid 500 mg Chewable Tablet PO SCH (08:38)
[2020-06-18] MEDS: Zinc Sulfate 220 MG CAP PO SCH (08:38)
[2020-06-18] MEDS: Enoxaparin Sodium 40 MG/0.4 ML SYRINGE SC SCH ×2 (08:38→20:53)
[2020-06-18] MEDS: Dexamethasone 4 mg/ml Vial SLOW IVP SCH (08:38)
[2020-06-18] MEDS: Cholecalciferol (Vitamin D3) 400 UNITS TAB PO SCH (08:38)
[2020-06-18] MEDS: Dextrose 5% in Water 1,000 ML IV SCH (20:49)
[2020-06-18] MEDS: cefTRIAXone\\ROCEPHIN 1 GM in Sodium Chloride 0.9% 100 ML IVPB SCH (20:49)
[2020-06-18] MEDS ORDERED: FLU VACC QS2020-21(65YR UP)/PF 240 MCG/0.7 ML SYRINGE IM ONE (21:00)
[2020-06-19] MEDS: Dextrose 5% in Water 1,000 ML IV SCH ×2 (02:05→17:04)
[2020-06-19] MEDS: Albuterol 200 PUFF (6.7GM INHALER) INH SCH ×4 (02:07→17:35)
[2020-06-19 03:55] LABS: Hemoglobin 9.7 g/dL (12.0-16.0); Mean Corpuscular HGB CONC 31.1 g/dL (32.0-36.0); Mean Corpuscular Hemoglobin 27.5 pg (27.0-31.0); Mean Corpuscular Volume 88.5 fL (78.0-98.0); Mean Platelet Volume 8.2 fL (7.4-10.4); Platelet Count 289 thou/uL (130-400); RBC Distribution Width 15.7 % (11.5-14.5); Red Blood Cell (RBC) Count 3.54 mill/uL (4.20-5.40); White Blood Cell (WBC) Count 9.8 thou/uL (4.8-10.8)
[2020-06-19 04:20] LABS: Anion Gap 13 mmol/L (10-20); BUN (Urea Nitrogen) 33 mg/dL (9.8-20.1); Calc. Creatinine Clearance 36 mL/min (70-130); Calcium 8.1 mg/dL (7.8-10.44); Carbon Dioxide 19 mmol/L (23-31); Chloride 112 mmol/L (98-107); Glucose 219 mg/dL (83-110); Potassium 3.9 mmol/L (3.5-5.1); Sodium 140 mmol/L (136-145)
--- NOTE | 2020-06-19 07:52 | PDOC.HOSPP ---
- Subjective Encounter Date: 06/18/20 Subjective: the patient is awake but she is not able to communicate effectively due to her dementia. - Objective Vital Signs & Weight: Vital Signs (12 hours) Temp Pulse Ox 06/19/20 04:00 99.0 F 06/19/20 00:05 98.9 F 06/18/20 20:00 94 L Weight Weight 167 lb Most Recent Monitor Data Heart Rate from ECG 58 NIBP 159/78 NIBP BP-Mean 105 Respiration from ECG 34 SpO2 88 I&O: 06/18/20 06/19/20 06/20/20 06:59 06:59 06:59 Intake Total 688 1647 Output Total 250 700 Balance 438 947 Result Diagrams: 06/19/20 03:26 06/19/20 03:26 Additional Labs: Laboratory Tests 06/19/20 06/19/20 03:26 03:26 Hgb 9.7 L Creatinine 1.36 H Estimated GFR (MDRD) 37 Laboratory Tests 06/18/20 03:29 Sodium 149 H Hospitalist ROS - Medication Medications: Active Medications Generic Name Dose Route Start Last Admin Trade Name Freq PRN Reason Stop Dose Admin Albuterol Sulfate 2 puff 06/17/20 10:30 06/19/20 06:14 Albuterol 200 Puff (6.7gm Inhaler) INH 2 puff [id number] ILA Administration Ascorbic Acid 1,000 mg 06/17/20 09:00 06/18/20 08:38 Ascorbic Acid 500 Mg Chewable Tablet PO Not Given DAILY ILA Cholecalciferol 400 units 06/17/20 09:00 06/18/20 08:38 Cholecalciferol (Vitamin D3) 400 Units Tab PO Not Given DAILY ILA Dexamethasone 8 mg 06/17/20 09:00 06/18/20 08:38 Dexamethasone 4 Mg/Ml Vial SLOW IVP 8 mg DAILY ILA Administration Enoxaparin Sodium 40 mg 06/17/20 09:00 06/18/20 20:53 Enoxaparin Sodium 40 Mg/0.4 Ml Syringe SC 40 mg Q12H ILA Administration Dextrose/Water 1,000 mls @ 75 mls/hr 06/17/20 09:30 06/19/20 02:05 D5w IV Not Given .[id number] ILA Ceftriaxone Sodium 1 gm/ 100 mls @ 200 mls/hr 06/18/20 17:00 06/18/20 20:49 Sodium Chloride IVPB 100 mls 1700 ILA Administration Zinc Sulfate 220 mg 06/17/20 09:00 06/18/20 08:38 Zinc Sulfate 220 Mg Cap PO Not Given DAILY ILA - Exam General Appearance: NAD, awake alert Heart: RRR, no murmur, no gallops, no rubs, normal peripheral pulses Respiratory: no wheezes, no ronchi, rales, tachypneic Gastrointestinal: soft, non-tender, non-distended, normal bowel sounds, no palpable masses, no hepatomegaly, no splenomegaly Extremities: no cyanosis, no clubbing, no edema Skin: normal turgor Neurological: no focal deficits Musculoskeletal: generalized weakness Psychiatric: not oriented Hosp A/P (1) Acute respiratory failure with hypoxia Code(s): J96.01 - ACUTE RESPIRATORY FAILURE WITH HYPOXIA Status: Acute (2) Pneumonia due to COVID-19 virus Code(s): U07.1 - COVID-19; J12.89 - OTHER VIRAL PNEUMONIA Status: Acute (3) RAZIA (acute kidney injury) Code(s): N17.9 - ACUTE KIDNEY FAILURE, UNSPECIFIED Status: Acute (4) Alzheimer's dementia Code(s): G30.9 - ALZHEIMER'S DISEASE, UNSPECIFIED; F02.80 - DEMENTIA IN OTH DISEASES CLASSD ELSWHR W/O BEHAVRL DISTURB Status: Chronic (5) Hypothyroidism Code(s): E03.9 - HYPOTHYROIDISM, UNSPECIFIED Status: Chronic (6) Hypernatremia Code(s): E87.0 - HYPEROSMOLALITY AND HYPERNATREMIA Status: Acute (7) Acute metabolic encephalopathy Code(s): G93.41 - METABOLIC ENCEPHALOPATHY Status: Acute - Plan acute hypoxic respiratory failure: Secondary to viral pneumonia. Continue supplemental oxygen. Currently on nasal cannula support. Covid 19 Pneumonia: Continue Decadron, supplemental vitamins, oxygen support. RAZIA: Slightly better. Continue IVF. Hypernatremia: possibly due to some dehydration. Continue IVF. Dementia: Patient is not capable of significant meaningful communication at this point. Acute metabolic encephalopathy: She is speaking a few words now. Per her nurse, this is an improvement.
[2020-06-19] MEDS: Cholecalciferol (Vitamin D3) 400 UNITS TAB PO SCH (08:25)
[2020-06-19] MEDS: Dexamethasone 4 mg/ml Vial SLOW IVP SCH (08:25)
[2020-06-19] MEDS: Ascorbic Acid 500 mg Chewable Tablet PO SCH (08:25)
[2020-06-19] MEDS: Zinc Sulfate 220 MG CAP PO SCH (08:25)
[2020-06-19] MEDS: Enoxaparin Sodium 40 MG/0.4 ML SYRINGE SC SCH ×2 (08:29→20:23)
--- NOTE | 2020-06-19 15:18 | PDOC.HOSPP ---
- Subjective Encounter Date: 06/19/20 Encounter Time: 11:00 Subjective: Patient is on high flow oxygen; she seems to be stable not toxic looking at this time. She is able to have some p.o. intake this morning. - Objective Vital Signs & Weight: Vital Signs (12 hours) Temp Pulse Ox 06/19/20 12:00 97.3 F L 06/19/20 08:02 90 L 06/19/20 08:00 97.7 F 06/19/20 04:00 99.0 F Weight Weight 167 lb Most Recent Monitor Data Heart Rate from ECG 49 NIBP 148/78 NIBP BP-Mean 101 Respiration from ECG 33 SpO2 94 I&O: 06/18/20 06/19/20 06/20/20 06:59 06:59 06:59 Intake Total 688 1647 170 Output Total 250 700 Balance 438 947 170 Result Diagrams: 06/19/20 03:26 06/19/20 03:26 Hospitalist ROS - Medication Medications: Active Medications Generic Name Dose Route Start Last Admin Trade Name Lisandroq PRN Reason Stop Dose Admin Albuterol Sulfate 2 puff 06/17/20 10:30 06/19/20 14:31 Albuterol 200 Puff (6.7gm Inhaler) INH Not Given [id number] ILA Ascorbic Acid 1,000 mg 06/17/20 09:00 06/19/20 08:25 Ascorbic Acid 500 Mg Chewable Tablet PO 1,000 mg DAILY ILA Administration Cholecalciferol 400 units 06/17/20 09:00 06/19/20 08:25 Cholecalciferol (Vitamin D3) 400 Units Tab PO 400 units DAILY ILA Administration Dexamethasone 8 mg 06/17/20 09:00 06/19/20 08:25 Dexamethasone 4 Mg/Ml Vial SLOW IVP 8 mg DAILY ILA Administration Enoxaparin Sodium 40 mg 06/17/20 09:00 06/19/20 08:29 Enoxaparin Sodium 40 Mg/0.4 Ml Syringe SC 40 mg Q12H ILA Administration Dextrose/Water 1,000 mls @ 75 mls/hr 06/17/20 09:30 06/19/20 02:05 D5w IV Not Given .[id number] ILA Ceftriaxone Sodium 1 gm/ 100 mls @ 200 mls/hr 06/18/20 17:00 06/18/20 20:49 Sodium Chloride IVPB 100 mls 1700 ILA Administration Zinc Sulfate 220 mg 06/17/20 09:00 06/19/20 08:25 Zinc Sulfate 220 Mg Cap PO 220 mg DAILY ILA Administration - Exam General Appearance: NAD, awake alert ENT: normocephalic atraumatic Neck: supple Heart: RRR Respiratory: normal chest expansion Neurological: cranial nerve grossly intact, no focal deficits Musculoskeletal: generalized weakness Psychiatric: A&O x 3 Hosp A/P - Plan (1) Acute respiratory failure with hypoxia Code(s): J96.01 - ACUTE RESPIRATORY FAILURE WITH HYPOXIA Status: Acute (2) Pneumonia due to COVID-19 virus Code(s): U07.1 - COVID-19; J12.89 - OTHER VIRAL PNEUMONIA Status: Acute Continue Decadron, supplemental vitamins, oxygen support. -Lovenox twice daily (3) RAZIA (acute kidney injury) -Improving with hydration (4) Alzheimer's dementia Code(s): G30.9 - ALZHEIMER'S DISEASE, UNSPECIFIED; F02.80 - DEMENTIA IN OTH DISEASES CLASSD ELSWHR W/O BEHAVRL DISTURB Status: Chronic (5) Hypothyroidism Code(s): E03.9 - HYPOTHYROIDISM, UNSPECIFIED Status: Chronic (6) Hypernatremia -Resolved with hydration (7) Acute metabolic encephalopathy with underlying history of dementia -Mentation at baseline Physical therapy consult for tomorrow
[2020-06-19] MEDS: cefTRIAXone\\ROCEPHIN 1 GM in Sodium Chloride 0.9% 100 ML IVPB SCH (17:03)
[2020-06-20] MEDS: Albuterol 200 PUFF (6.7GM INHALER) INH SCH ×5 (07:11→22:56)
[2020-06-20] MEDS: Dextrose 5% in Water 1,000 ML IV SCH ×2 (07:12→17:27)
[2020-06-20] MEDS: Enoxaparin Sodium 40 MG/0.4 ML SYRINGE SC SCH ×2 (07:44→22:56)
[2020-06-20] MEDS: Dexamethasone 4 mg/ml Vial SLOW IVP SCH (07:44)
[2020-06-20] MEDS: Ascorbic Acid 500 mg Chewable Tablet PO SCH (07:45)
[2020-06-20] MEDS: Cholecalciferol (Vitamin D3) 400 UNITS TAB PO SCH (07:45)
--- NOTE | 2020-06-20 16:25 | PDOC.HOSPP ---
- Subjective Encounter Date: 06/20/20 Encounter Time: 16:15 Subjective: f/u for COVID PNA/hypoxia receiving high-flow O2 @ 55L/min. No new issues reported. - Objective Vital Signs & Weight: Vital Signs (12 hours) Temp Pulse Ox 06/20/20 12:00 97.5 F L 06/20/20 08:00 96.0 F L 90 L Weight Weight 167 lb Most Recent Monitor Data Heart Rate from ECG 53 NIBP 156/75 NIBP BP-Mean 102 Respiration from ECG 19 SpO2 89 I&O: 06/19/20 06/20/20 06/21/20 06:59 06:59 06:59 Intake Total 1647 2031 Output Total 700 1050 Balance 947 981 Result Diagrams: 06/19/20 03:26 06/19/20 03:26 Additional Labs: Accuchecks 06/19/20 20:56 POC Glucose 237 H Microbiology 06/18/20 02:40 Urine clean catch Urine Culture - Final NO GROWTH AT 48 HOURS Laboratory Tests 06/16/20 06/16/20 06/16/20 22:07 22:07 22:07 Hgb 12.2 D-Dimer 2.39 H Sodium Creatinine Ferritin C-Reactive Protein Influenza A RNA INAAT Not Detected Influenza B RNA INAAT Not Detected SARS-CoV-2 Rap RNA(RT-PCR) DETECTED A* 06/17/20 06/17/20 06/17/20 04:58 04:58 04:58 Hgb 10.1 L D-Dimer Sodium Creatinine Ferritin 403.12 H C-Reactive Protein 17.47 H Influenza A RNA INAAT Influenza B RNA INAAT SARS-CoV-2 Rap RNA(RT-PCR) 06/17/20 06/17/20 06/18/20 04:58 12:29 03:29 Hgb D-Dimer 2.57 H Sodium 151 H 149 H Creatinine 1.61 H 1.67 H Ferritin C-Reactive Protein Influenza A RNA INAAT Influenza B RNA INAAT SARS-CoV-2 Rap RNA(RT-PCR) EKG Reviewed by me: Yes (Tele - SR) Hospitalist ROS - Medication Medications: Active Medications Generic Name Dose Route Start Last Admin Trade Name Freq PRN Reason Stop Dose Admin Albuterol Sulfate 2 puff 06/17/20 10:30 06/20/20 07:12 Albuterol 200 Puff (6.7gm Inhaler) INH Not Given [id number] ILA Ascorbic Acid 1,000 mg 06/17/20 09:00 06/20/20 07:45 Ascorbic Acid 500 Mg Chewable Tablet PO 1,000 mg DAILY ILA Administration Cholecalciferol 400 units 06/17/20 09:00 06/20/20 07:45 Cholecalciferol (Vitamin D3) 400 Units Tab PO 400 units DAILY ILA Administration Dexamethasone 8 mg 06/17/20 09:00 06/20/20 07:44 Dexamethasone 4 Mg/Ml Vial SLOW IVP 8 mg DAILY ILA Administration Enoxaparin Sodium 40 mg 06/17/20 09:00 06/20/20 07:44 Enoxaparin Sodium 40 Mg/0.4 Ml Syringe SC 40 mg Q12H ILA Administration Dextrose/Water 1,000 mls @ 75 mls/hr 06/17/20 09:30 06/20/20 07:12 D5w IV 1,000 mls .[id number] ILA Administration Ceftriaxone Sodium 1 gm/ 100 mls @ 200 mls/hr 06/18/20 17:00 06/19/20 17:03 Sodium Chloride IVPB 100 mls 1700 ILA Administration Zinc Sulfate 220 mg 06/17/20 09:00 06/19/20 08:25 Zinc Sulfate 220 Mg Cap PO 220 mg DAILY ILA Administration - Exam General Appearance: NAD, awake alert General - other findings: mumbles few words Eye: PERRL, anicteric sclera ENT: normocephalic atraumatic, no oropharyngeal lesions Neck: supple, symmetric, no JVD, no thyromegaly, no lymphadenopathy Heart: RRR, no gallops, no rubs, normal peripheral pulses Heart - other findings: S1, S2 Respiratory: tachypneic Respiratory - other findings: scattered coarse sounds Gastrointestinal: soft, non-tender, non-distended, normal bowel sounds, no palpable masses, no hepatomegaly Extremities: no cyanosis, no clubbing, no edema Skin: normal turgor, no lesions Neurological: no new deficit, speech deficit Musculoskeletal: generalized weakness Psychiatric: oriented to person, flat affect, lethargic Hosp A/P (1) Pneumonia due to COVID-19 virus Code(s): U07.1 - COVID-19; J12.89 - OTHER VIRAL PNEUMONIA Status: Acute Plan: Continue Rocephin/Dexamethasone/Vit C/Zinc/High-flow O2 @ 55L/min (2) Acute respiratory failure with hypoxia Code(s): J96.01 - ACUTE RESPIRATORY FAILURE WITH HYPOXIA Status: Acute Plan: See above, wean high-flow as clinically indicated (3) Acute metabolic encephalopathy Code(s): G93.41 - METABOLIC ENCEPHALOPATHY Status: Acute (4) RAZIA (acute kidney injury) Code(s): N17.9 - ACUTE KIDNEY FAILURE, UNSPECIFIED Status: Acute Plan: Improved, continue IVF's, avoid nephrotoxic meds and limit contrast exposure (5) Hypernatremia Code(s): E87.0 - HYPEROSMOLALITY AND HYPERNATREMIA Status: Acute Plan: Secondary to dehydration, resolving, continue D5W @ 50ml/h (6) Alzheimer's dementia Code(s): G30.9 - ALZHEIMER'S DISEASE, UNSPECIFIED; F02.80 - DEMENTIA IN OTH DISEASES CLASSD ELSWHR W/O BEHAVRL DISTURB Status: Chronic Plan: Advanced dementia, supportive mgmt - Plan continue antibiotics, social research assistant, respiratory therapy, DVT proph w/SCDs Consults: Palliative Care Continue supportive mgmt Continue High-flow O2 and wean as clinically indicated Continue Rocephin/Dexamethasone Palliative care consult AM lab: BMP, CRP, D-dimer
[2020-06-20] MEDS: cefTRIAXone\\ROCEPHIN 1 GM in Sodium Chloride 0.9% 100 ML IVPB SCH (17:26)
[2020-06-20] MEDS: Zinc Sulfate 220 MG CAP PO SCH (17:27)
[2020-06-21 03:49] LABS: #Lymphocytes 0.6 thou/uL (1.20-3.40); #Monocytes 0.4 thou/uL (0.11-0.59); #Neutrophils 7.4 thou/uL (1.40-6.50); %Basophils 0.2 % (0.0-1.0); %Eosinophils 0.2 % (0.0-10.0); %Lymphocytes 6.9 % (21.0-51.0); %Monocytes 4.4 % (0.0-10.0); %Neutrophils 88.3 % (42.0-75.0); Hemoglobin 10.3 g/dL (12.0-16.0); Mean Corpuscular Hemoglobin 27.5 pg (27.0-31.0); Mean Corpuscular Volume 88.7 fL (78.0-98.0); Mean Platelet Volume 7.9 fL (7.4-10.4); Platelet Count 351 thou/uL (130-400); RBC Distribution Width 15.7 % (11.5-14.5); Red Blood Cell (RBC) Count 3.75 mill/uL (4.20-5.40); White Blood Cell (WBC) Count 8.4 thou/uL (4.8-10.8)
[2020-06-21 04:13] LABS: Anion Gap 15 mmol/L (10-20); BUN (Urea Nitrogen) 23 mg/dL (9.8-20.1); CRP (Inflammatory) 6.92 mg/dL (= or < 0.5); Calc. Creatinine Clearance 53 mL/min (70-130); Calcium 8.4 mg/dL (7.8-10.44); Carbon Dioxide 21 mmol/L (23-31); Chloride 110 mmol/L (98-107); Glucose 112 mg/dL (83-110); Magnesium 2.1 mg/dL (1.6-2.6); Sodium 142 mmol/L (136-145)
[2020-06-21 04:15] LABS: Anion Gap 14 mmol/L (10-20); BUN (Urea Nitrogen) 24 mg/dL (9.8-20.1); Calc. Creatinine Clearance 52 mL/min (70-130); Calcium 8.4 mg/dL (7.8-10.44); Carbon Dioxide 22 mmol/L (23-31); Chloride 110 mmol/L (98-107); Glucose 115 mg/dL (83-110); Phosphorus 2.5 mg/dL (2.3-4.7); Potassium 3.9 mmol/L (3.5-5.1); Sodium 142 mmol/L (136-145)
[2020-06-21 04:16] LABS: Troponin I 0.022 ng/mL (< 0.028)
[2020-06-21] MEDS: Albuterol 200 PUFF (6.7GM INHALER) INH SCH ×6 (05:55→23:22)
[2020-06-21] MEDS: Dexamethasone 4 mg/ml Vial SLOW IVP SCH (07:58)
[2020-06-21] MEDS: Ascorbic Acid 500 mg Chewable Tablet PO SCH (07:58)
[2020-06-21] MEDS: Zinc Sulfate 220 MG CAP PO SCH (07:58)
[2020-06-21] MEDS: Cholecalciferol (Vitamin D3) 400 UNITS TAB PO SCH (07:58)
[2020-06-21] MEDS: Enoxaparin Sodium 40 MG/0.4 ML SYRINGE SC SCH ×2 (07:58→19:59)
--- NOTE | 2020-06-21 10:06 | PDOC.HOSPP ---
- Subjective Encounter Date: 06/21/20 Encounter Time: 09:50 Subjective: f/u for COVID PNA on high-flow O2 @ 60L/min receiving Rocephin/Dexamethasone/Lovenox/Vit C/Zinc. Nursing reports O2 sats decreasing in the 80's on high-flow and noted sinus bradycardia. - Objective Vital Signs & Weight: Vital Signs (12 hours) Temp 06/21/20 08:00 96.0 F L 06/21/20 04:00 97.9 F 06/21/20 00:00 97.9 F Weight Weight 167 lb Most Recent Monitor Data Heart Rate from ECG 55 NIBP 142/86 NIBP BP-Mean 104 Respiration from ECG 30 SpO2 88 I&O: 06/20/20 06/21/20 06/22/20 06:59 06:59 06:59 Intake Total 2031 1520 Output Total 1050 1325 Balance 981 195 Result Diagrams: 06/21/20 03:14 06/21/20 03:14 Additional Labs: Microbiology 06/18/20 02:40 Urine clean catch Urine Culture - Final NO GROWTH AT 48 HOURS Laboratory Tests 06/16/20 06/16/20 06/16/20 22:07 22:07 22:07 Hgb 12.2 D-Dimer 2.39 H Sodium Creatinine Magnesium Ferritin C-Reactive Protein Influenza A RNA INAAT Not Detected Influenza B RNA INAAT Not Detected SARS-CoV-2 Rap RNA(RT-PCR) DETECTED A* 06/17/20 06/17/20 06/17/20 04:58 04:58 04:58 Hgb 10.1 L D-Dimer Sodium Creatinine Magnesium Ferritin 403.12 H C-Reactive Protein 17.47 H Influenza A RNA INAAT Influenza B RNA INAAT SARS-CoV-2 Rap RNA(RT-PCR) 06/17/20 06/17/20 06/18/20 04:58 12:29 03:29 Hgb D-Dimer 2.57 H Sodium 151 H 149 H Creatinine 1.61 H 1.67 H Magnesium Ferritin C-Reactive Protein Influenza A RNA INAAT Influenza B RNA INAAT SARS-CoV-2 Rap RNA(RT-PCR) 06/21/20 06/21/20 03:14 03:14 Hgb D-Dimer 1.85 H Sodium Creatinine Magnesium 2.1 Ferritin C-Reactive Protein 6.92 H Influenza A RNA INAAT Influenza B RNA INAAT SARS-CoV-2 Rap RNA(RT-PCR) EKG Reviewed by me: Yes (Tele - Sinus richard in 40-50's) Hospitalist ROS - Medication Medications: Active Medications Generic Name Dose Route Start Last Admin Trade Name Ronald PRN Reason Stop Dose Admin Albuterol Sulfate 2 puff 06/17/20 10:30 06/21/20 08:00 Albuterol 200 Puff (6.7gm Inhaler) INH Not Given [id number] ILA Ascorbic Acid 1,000 mg 06/17/20 09:00 06/21/20 07:58 Ascorbic Acid 500 Mg Chewable Tablet PO 1,000 mg DAILY ILA Administration Cholecalciferol 400 units 06/17/20 09:00 06/21/20 07:58 Cholecalciferol (Vitamin D3) 400 Units Tab PO 400 units DAILY ILA Administration Dexamethasone 8 mg 06/17/20 09:00 06/21/20 07:58 Dexamethasone 4 Mg/Ml Vial SLOW IVP 8 mg DAILY ILA Administration Enoxaparin Sodium 40 mg 06/17/20 09:00 06/21/20 07:58 Enoxaparin Sodium 40 Mg/0.4 Ml Syringe SC 40 mg Q12H ILA Administration Ceftriaxone Sodium 1 gm/ 100 mls @ 200 mls/hr 06/18/20 17:00 06/20/20 17:26 Sodium Chloride IVPB 100 mls 1700 ILA Administration Dextrose/Water 1,000 mls @ 50 mls/hr 06/20/20 16:51 06/20/20 17:27 D5w IV 1,000 mls .Q20H ILA Administration Zinc Sulfate 220 mg 06/17/20 09:00 06/21/20 07:58 Zinc Sulfate 220 Mg Cap PO 220 mg DAILY ILA Administration - Exam General Appearance: ill appearing General - other findings: lethargic, does not follow commands, tachypneic Eye: anicteric sclera ENT: normocephalic atraumatic, no oropharyngeal lesions, dry oral mucosa Neck: supple, symmetric, no JVD, no thyromegaly, no lymphadenopathy Heart: no murmur, no gallops, no rubs, normal peripheral pulses Heart - other findings: S1, S2 bradycardic Respiratory: tachypneic Respiratory - other findings: coarse sounds bilat, diminished Gastrointestinal: soft, non-tender, non-distended, normal bowel sounds, no palpable masses Extremities: no cyanosis, no clubbing, no edema Skin: normal turgor, no lesions Neurological - other findings: does not follow commands, mumbles Musculoskeletal: generalized weakness Psychiatric: not oriented, flat affect, somnolent, lethargic Hosp A/P (1) Pneumonia due to COVID-19 virus Code(s): U07.1 - COVID-19; J12.89 - OTHER VIRAL PNEUMONIA Status: Acute Plan: Continue Rocephin/Dexamethasone/Lovenox/Vit C/Zinc/O2 supplementation, appears progressive despite treatment, add Zithromax (2) Acute respiratory failure with hypoxia Code(s): J96.01 - ACUTE RESPIRATORY FAILURE WITH HYPOXIA Status: Acute (3) Acute metabolic encephalopathy Code(s): G93.41 - METABOLIC ENCEPHALOPATHY Status: Acute Plan: Progressive due to #1 (4) RAZIA (acute kidney injury) Code(s): N17.9 - ACUTE KIDNEY FAILURE, UNSPECIFIED Status: Acute Plan: Improved (5) Hypernatremia Code(s): E87.0 - HYPEROSMOLALITY AND HYPERNATREMIA Status: Acute Plan: Resolved (6) Alzheimer's dementia Code(s): G30.9 - ALZHEIMER'S DISEASE, UNSPECIFIED; F02.80 - DEMENTIA IN OTH DISEASES CLASSD ELSWHR W/O BEHAVRL DISTURB Status: Chronic (7) Sinus bradycardia Code(s): R00.1 - BRADYCARDIA, UNSPECIFIED Status: Acute Plan: HR down in the 30's overnight currently in the 50-60's, avoid AV zulma blocking agents and B-blockers, may progress given #1, will discuss further goals of care regarding current global clinical decline. - Plan plan discussed w/ family, continue antibiotics, respiratory therapy, DVT proph w/SCDs Continue supportive mgmt Continue High-flow O2, unable to wean Continue Rocephin/Dexamethasone Add Zithromax 500mg IV daily Palliative care consult pending AM lab: CRP, D-dimer
[2020-06-21] MEDS: Azithromycin 500 MG in Sodium Chloride 0.9% 250 ML 250 ML IVPB SCH (11:26)
[2020-06-21] MEDS: Dextrose 5% in Water 1,000 ML IV SCH (17:19)
[2020-06-21] MEDS: cefTRIAXone\\ROCEPHIN 1 GM in Sodium Chloride 0.9% 100 ML IVPB SCH (17:21)
[2020-06-22] MEDS: Albuterol 200 PUFF (6.7GM INHALER) INH SCH ×4 (05:04→12:34)
[2020-06-22] MEDS: Ascorbic Acid 500 mg Chewable Tablet PO SCH (07:51)
[2020-06-22] MEDS: Enoxaparin Sodium 40 MG/0.4 ML SYRINGE SC SCH (07:51)
[2020-06-22] MEDS: Cholecalciferol (Vitamin D3) 400 UNITS TAB PO SCH (07:51)
[2020-06-22] MEDS: Zinc Sulfate 220 MG CAP PO SCH (07:51)
[2020-06-22] MEDS: Dexamethasone 4 mg/ml Vial SLOW IVP SCH (07:51)
[2020-06-22] MEDS: Dextrose 5% in Water 1,000 ML IV SCH (07:53)
[2020-06-22 09:39] VITALS: TEMP 98.1
[2020-06-22] MEDS: cefTRIAXone\\ROCEPHIN 1 GM in Sodium Chloride 0.9% 100 ML IVPB SCH (12:34)
[2020-06-22] MEDS: Azithromycin 500 MG in Sodium Chloride 0.9% 250 ML 250 ML IVPB SCH (12:34)
--- NOTE | 2020-06-22 13:01 | PDOC.HOSPP ---
- Subjective Encounter Date: 06/22/20 Encounter Time: 12:40 Subjective: f/u for COVID PNA on high-flow O2 @ 60L/min NC. Remains somnolent per nursing. - Objective Vital Signs & Weight: Vital Signs (12 hours) Temp Pulse Ox 06/22/20 08:00 98.1 F 90 L 06/22/20 04:00 97.8 F 06/22/20 03:44 99.0 F Weight Weight 167 lb Most Recent Monitor Data Heart Rate from ECG 64 NIBP 150/106 NIBP BP-Mean 120 Respiration from ECG 26 SpO2 91 I&O: 06/21/20 06/22/20 06/23/20 06:59 06:59 06:59 Intake Total 1520 600 Output Total 1325 Balance 195 600 Result Diagrams: 06/21/20 03:14 06/21/20 03:14 Additional Labs: Microbiology 06/18/20 02:40 Urine clean catch Urine Culture - Final NO GROWTH AT 48 HOURS Laboratory Tests 06/16/20 06/16/20 06/16/20 22:07 22:07 22:07 Hgb 12.2 D-Dimer 2.39 H Sodium Creatinine Magnesium Ferritin C-Reactive Protein Influenza A RNA INAAT Not Detected Influenza B RNA INAAT Not Detected SARS-CoV-2 Rap RNA(RT-PCR) DETECTED A* 06/17/20 06/17/20 06/17/20 04:58 04:58 04:58 Hgb 10.1 L D-Dimer Sodium Creatinine Magnesium Ferritin 403.12 H C-Reactive Protein 17.47 H Influenza A RNA INAAT Influenza B RNA INAAT SARS-CoV-2 Rap RNA(RT-PCR) 06/17/20 06/17/20 06/18/20 04:58 12:29 03:29 Hgb D-Dimer 2.57 H Sodium 151 H 149 H Creatinine 1.61 H 1.67 H Magnesium Ferritin C-Reactive Protein Influenza A RNA INAAT Influenza B RNA INAAT SARS-CoV-2 Rap RNA(RT-PCR) 06/21/20 06/21/20 03:14 03:14 Hgb D-Dimer 1.85 H Sodium Creatinine Magnesium 2.1 Ferritin C-Reactive Protein 6.92 H Influenza A RNA INAAT Influenza B RNA INAAT SARS-CoV-2 Rap RNA(RT-PCR) EKG Reviewed by me: Yes (Tele - Sinus richard in 50's) Hospitalist ROS - Medication Medications: Active Medications Generic Name Dose Route Start Last Admin Trade Name Lisandroq PRN Reason Stop Dose Admin Albuterol Sulfate 2 puff 06/17/20 10:30 06/22/20 12:34 Albuterol 200 Puff (6.7gm Inhaler) INH Not Given R1AA-KB ILA Ascorbic Acid 1,000 mg 06/17/20 09:00 06/22/20 07:51 Ascorbic Acid 500 Mg Chewable Tablet PO 1,000 mg DAILY ILA Administration Cholecalciferol 400 units 06/17/20 09:00 06/22/20 07:51 Cholecalciferol (Vitamin D3) 400 Units Tab PO 400 units DAILY ILA Administration Dexamethasone 8 mg 06/17/20 09:00 06/22/20 07:51 Dexamethasone 4 Mg/Ml Vial SLOW IVP 8 mg DAILY ILA Administration Enoxaparin Sodium 40 mg 06/17/20 09:00 06/22/20 07:51 Enoxaparin Sodium 40 Mg/0.4 Ml Syringe SC 40 mg Q12H ILA Administration Ceftriaxone Sodium 1 gm/ 100 mls @ 200 mls/hr 06/18/20 17:00 06/22/20 12:34 Sodium Chloride IVPB Not Given 1700 ILA Dextrose/Water 1,000 mls @ 50 mls/hr 06/20/20 16:51 06/22/20 07:53 D5w IV Not Given .Q20H ILA Azithromycin 500 mg/ Sodium 250 mls @ 250 mls/hr 06/21/20 11:00 06/22/20 12:34 Chloride IVPB Not Given 1100 ILA Zinc Sulfate 220 mg 06/17/20 09:00 06/22/20 07:51 Zinc Sulfate 220 Mg Cap PO 220 mg DAILY ILA Administration - Exam General Appearance: ill appearing General - other findings: tachypneic, unresponsive Eye: PERRL, anicteric sclera ENT: normocephalic atraumatic, dry oral mucosa Neck: supple, symmetric, no JVD, no thyromegaly, no lymphadenopathy Heart: RRR, no gallops, no rubs, normal peripheral pulses Heart - other findings: S1, S2 Respiratory: tachypneic Respiratory - other findings: coarse sounds bilat, diminished in bases Gastrointestinal: soft, non-tender, non-distended, normal bowel sounds, no palpable masses Extremities: no cyanosis, no clubbing, 1+ LE edema Skin: normal turgor Neurological - other findings: Unresponsive Psychiatric: not oriented, somnolent, lethargic Hosp A/P (1) Pneumonia due to COVID-19 virus Code(s): U07.1 - COVID-19; J12.89 - OTHER VIRAL PNEUMONIA Status: Acute Plan: Continue Zithromax/Rocephin/Dexamethasone/Lovenox/Vit C/Zinc, poor prognosis (2) Acute respiratory failure with hypoxia Code(s): J96.01 - ACUTE RESPIRATORY FAILURE WITH HYPOXIA Status: Acute Plan: Remains on high-flow O2 @ 60L/min (3) Acute metabolic encephalopathy Code(s): G93.41 - METABOLIC ENCEPHALOPATHY Status: Acute (4) RAZIA (acute kidney injury) Code(s): N17.9 - ACUTE KIDNEY FAILURE, UNSPECIFIED Status: Acute (5) Hypernatremia Code(s): E87.0 - HYPEROSMOLALITY AND HYPERNATREMIA Status: Acute (6) Alzheimer's dementia Code(s): G30.9 - ALZHEIMER'S DISEASE, UNSPECIFIED; F02.80 - DEMENTIA IN OTH DISEASES CLASSD ELSWHR W/O BEHAVRL DISTURB Status: Chronic Plan: End-stage dementia (7) Sinus bradycardia Code(s): R00.1 - BRADYCARDIA, UNSPECIFIED Status: Acute Plan: Continue telemetry monitoring - Plan continue antibiotics, hospice social worker, respiratory therapy, DVT proph w/SCDs Consults: Palliative Care Continue supportive mgmt Continue High-flow O2, unable to wean Continue Rocephin/Dexamethasone Add Zithromax 500mg IV daily Palliative care consult, family considering hospice options AM lab: CRP, D-dimer
--- NOTE | 2020-06-22 15:18 | EKG ---
Test Reason : STAT Blood Pressure : / mmHG Vent. Rate : 051 BPM Atrial Rate : 052 BPM P-R Int : 000 ms QRS Dur : 090 ms QT Int : 490 ms P-R-T Axes : 000 -29 -05 degrees QTc Int : 451 ms Normal sinus rhythm Cannot exclude Anterior infarct , age undetermined Abnormal ECG When compared with ECG of 16-JUN-2020 22:47, (Unconfirmed) Previous ECG has undetermined rhythm, needs review Nonspecific T wave abnormality, improved in Anterolateral leads Confirmed by DR. Beata CLEMENTE MD ([id number]) on 06/22/2020 3:18:07 PM Referred By: AFFRAM Confirmed By:DR. Beata CLEMENTE MD
--- NOTE | 2020-06-22 19:30 | DIS ---
DATE OF ADMISSION: 06/17/2020 DATE OF DISCHARGE: 06/22/2020 DISCHARGE DIAGNOSES: 1. Pneumonia secondarily to COVID-19 virus. 2. Acute hypoxic respiratory failure, progressive. 3. Acute metabolic encephalopathy multifactorial. 4. Acute kidney injury. 5. Hypernatremia. 6. Advanced Alzheimer dementia. 7. Sinus bradycardia. CONSULTATIONS: None. PERTINENT LABORATORY AND X-RAY FINDINGS: Creatinine ranged between 0.93-1.67, estimated GFR ranged between 29-57, magnesium level 2.1, phosphorus 2.5. CRP ranged between 6.92-17.47. BNP 210. D-dimer ranged between 1.85-2.57. COVID-19 PCR positive, 06/16/2020. Influenza A and B antigen negative, 06/16/2020. Urine culture dated 06/18/2020, showed no growth at 48 hours. Portable chest x-ray dated 06/16/2020, showed multifocal infiltrates consistent with COVID-19 bilateral infection. HOSPITAL COURSE: The patient was initially admitted after presenting with increased shortness of breath with associated hypoxia and COVID-19 PCR positive. Chest imaging showed bilateral infiltrates, at which point, the patient was given IV azithromycin, Rocephin, and albuterol inhaler. The patient was also placed on oxygen supplementation, initially requiring an oxygen via nasal cannula. However, the patient progressed to needing high-flow oxygen supplementation to maintain O2 saturations over 90%. The patient continued to clinically decline despite pulmonary supportive management as well as high-flow oxygen supplementation. The patient did receive IV Rocephin, dexamethasone, vitamin C, and zinc. Due to the patient's advanced age, continuous clinical decline, discussions were had with the patient's guardian regarding palliative care measures and comfort care. The decision was to transition to comfort measures and hospice care on 06/22/2020. I examined the patient at the time of evaluation on 06/22/2020, at which point, the patient is appropriate candidate to transition to hospice care. The patient will transition to general inpatient for hospice care. Job ID: [id number]
== END 2020-06-22 15:14 | disposition hospice, inpatient (51) | DRG 177 ==
LOC: ERS 21:28 → ERHOLD 06-17 00:20 → IMCU/EMU 06-17 19:29
PROVIDERS: ADMIT Student in an Organized Health Care Education/Training Program; ATTEND Internal Medicine
PROC: 8E0ZXY6 Isolation (ICD-10-PCS; principal; 2020-06-17)
DX: U07.1 COVID-19 (principal); J12.89 Other viral pneumonia; J96.01 Acute respiratory failure with hypoxia; G93.41 Metabolic encephalopathy; N17.9 Acute kidney failure, unspecified; E87.0 Hyperosmolality and hypernatremia; Z66 Do not resuscitate; Z23 Encounter for immunization; F41.9 Anxiety disorder, unspecified; F32.9 Major depressive disorder, single episode, unspecified; G30.9 Alzheimer's disease, unspecified; F02.80 Dementia in other diseases classified elsewhere, unspecified severity, without behavioral disturbance, psychotic disturbance, mood disturbance, and anxiety; R00.1 Bradycardia, unspecified; N18.9 Chronic kidney disease, unspecified; I12.9 Hypertensive chronic kidney disease with stage 1 through stage 4 chronic kidney disease, or unspecified chronic kidney disease; E78.5 Hyperlipidemia, unspecified; E03.9 Hypothyroidism, unspecified; Z88.0 Allergy status to penicillin; Z88.5 Allergy status to narcotic agent; Z79.890 Hormone replacement therapy; Z79.899 Other long term (current) drug therapy; Z90.49 Acquired absence of other specified parts of digestive tract
CPT/HCPCS: 0240U; 36415; 36416; 71045; 80048; 80053; 81001; 82553; 82728; 83735; 83880; 84100; 84484; 85025; 85027; 85379; 86140; 87086; 93005; 93010; 94640; 96365; 96367; J0456; J0696; J1100; J1650; J3490; J7050; J7620

== ENCOUNTER 2020-06-22 16:00 | Inpatient (IN) | payer OTHER ==
[2020-06-22] MEDS ORDERED: Morphine 2 MG/ML VIAL SLOW IVP SCH (16:40)
[2020-06-22] MEDS ORDERED: Morphine 4 MG/ML VIAL ONE (16:40)
[2020-06-22] MEDS ORDERED: diphenhydrAMINE 50 MG/ML VIAL IVP PRN (16:41)
[2020-06-22] MEDS ORDERED: diphenhydrAMINE 25 MG CAP PO PRN (16:41)
[2020-06-22] MEDS ORDERED: Haloperidol Lactate 5 MG/ML VIAL SLOW IVP PRN (16:42)
[2020-06-22] MEDS ORDERED: Ondansetron PF 4 MG/2 ML Vial IVP PRN (16:43)
[2020-06-22] MEDS ORDERED: Dexamethasone 4 mg/ml Vial SLOW IVP PRN (16:46)
[2020-06-22] MEDS ORDERED: Lorazepam 2 MG/ML VIAL SLOW IVP PRN (16:46)
[2020-06-22] MEDS ORDERED: Artificial Tear Sol 15 ML BOT EA EYE PRN (16:48)
[2020-06-22] MEDS ORDERED: Atropine Sulfate 1% Ophth Soln 5 ml Bottle PO PRN (16:49)
[2020-06-22] MEDS: Lorazepam 2 MG/ML VIAL SLOW IVP PRN (17:42)
[2020-06-22] MEDS: Morphine 2 MG/ML VIAL SLOW IVP PRN (20:58)
[2020-06-23] MEDS: Morphine 2 MG/ML VIAL SLOW IVP PRN ×2 (09:34→15:43)
[2020-06-26] MEDS: Morphine 2 MG/ML VIAL SLOW IVP PRN ×2 (01:21→22:21)
[2020-06-27] MEDS: Morphine 2 MG/ML VIAL SLOW IVP PRN (14:10)
[2020-06-27] MEDS: Morphine 2 MG/ML VIAL SLOW IVP SCH (17:20)
[2020-06-28] MEDS: Morphine 2 MG/ML VIAL SLOW IVP SCH ×3 (02:17→16:46)
[2020-06-28] MEDS: Morphine 2 MG/ML VIAL SLOW IVP PRN ×3 (06:05→21:25)
[2020-06-28 20:56] VITALS: TEMP 97.3
[2020-06-29] MEDS: Morphine 2 MG/ML VIAL SLOW IVP SCH ×3 (01:41→17:14)
[2020-06-29] MEDS: Morphine 2 MG/ML VIAL SLOW IVP PRN ×2 (05:23→12:56)
[2020-06-29] MEDS: Lorazepam 2 MG/ML VIAL SLOW IVP PRN ×2 (09:06→12:55)
[2020-06-29 20:50] VITALS: BP 60/45
--- NOTE | 2020-06-30 13:38 | DIS ---
DATE OF ADMISSION: 06/22/2020 DATE OF DISCHARGE: 06/29/2020 Time of was June 29, 2020, at 9:55 p.m. HISTORY OF PRESENT ILLNESS: This is an 84-year-old female who was admitted to hospice with . The patient failed all medical therapy and was admitted to hospice. The patient peacefully at time noted above. Other metabolic problems were renal failure, hyponatremia, and advanced dementia. DISPOSITION: To home. Family was aware. Job ID: [id number]
== END 2020-06-29 21:55 | disposition expired | DRG 951 ==
LOC: IMCU/EMU 16:00 → T4-A 21:27
PROVIDERS: ADMIT Internal Medicine Nephrology; ATTEND Internal Medicine Nephrology
DX: Z51.5 Encounter for palliative care (principal); J96.01 Acute respiratory failure with hypoxia; J12.82 Pneumonia due to coronavirus disease 2019; U07.1 COVID-19; E87.0 Hyperosmolality and hypernatremia; N17.9 Acute kidney failure, unspecified; E87.1 Hypo-osmolality and hyponatremia; Z66 Do not resuscitate; E03.9 Hypothyroidism, unspecified; G30.9 Alzheimer's disease, unspecified; F02.80 Dementia in other diseases classified elsewhere, unspecified severity, without behavioral disturbance, psychotic disturbance, mood disturbance, and anxiety; N18.9 Chronic kidney disease, unspecified; I12.9 Hypertensive chronic kidney disease with stage 1 through stage 4 chronic kidney disease, or unspecified chronic kidney disease; Z88.5 Allergy status to narcotic agent; Z88.0 Allergy status to penicillin; Z90.49 Acquired absence of other specified parts of digestive tract
CPT/HCPCS: J2060; J2270